=== PATIENT | female | born 1935 | race Caucasian/White ===

== ENCOUNTER 2021-08-09 17:41 | Inpatient (IN) | payer MEDICARE, OTHER, SELFPAY ==
[2021-08-09] VITALS (9 sets, daily range): BP systolic 104–138; BP diastolic 54–89; PULSE 69–93; RESP 15–21; TEMP 36.6–36.8; O2SAT 97–100; BMI 21.9; BMI 18.9
--- NOTE | 2021-08-09 17:58 | EKG12_ITS ---
Test Reason : SOB Blood Pressure : / mmHG Vent. Rate : 091 BPM Atrial Rate : 091 BPM P-R Int : 186 ms QRS Dur : 094 ms QT Int : 394 ms P-R-T Axes : 028 -30 -49 degrees QTc Int : 484 ms Normal sinus rhythm Left axis deviation ST & T wave abnormality, consider anterolateral ischemia Prolonged QT Abnormal ECG Confirmed by BRADLEY DELGADO, MOHAMUD ([id number]), state editor SUAD CHAVARRIA ([id number]) on 08/11/2021 9:58:13 AM Referred By: KENDRICK Confirmed By:MOHAMUD HUERTA MD
--- NOTE | 2021-08-09 17:59 | ED.VIS.DYS ---
HPI History of Present Illness Chief Complaint: Shortness of Breath Narrative Narrative: History and physical is mildly limited secondary to age. According to her daughter, patient went to her son's house. They were unable to read a pulse ox because her hands were cold. Patient has been increasingly short of breath over the last few days, and they think that maybe she accidentally turned off her oxygen prior to arrival which is why she felt very short of breath and has had dyspnea on exertion. They state that she has past medical history of fluid on her lungs but no history of heart failure. They deny that she has pleural effusions. Patient denies any increase in pedal edema or weight gain. She states that she has been short of breath and having dyspnea on exertion for quite some time, but worse over the last few days. She wears 3 L of oxygen per nasal cannula at all times. She denies any fevers or chills. No cough, no other symptoms. They present her for evaluation for her shortness of breath that has been increasing. [facility] Medical History Depression Home Medications Multivitamins,Therapeutic 1 tab DAILY 09/29/14 [History Last Taken 11/09/14 08:00 1] diclofenac sodium 50 mg PO DAILY 09/29/14 [History Last Taken 11/09/14 08:00 50 mg] oxycodone [OxyContin] 10 mg PO Q6H PRN PRN #30 tablet 10/01/14 [Rx Last Taken 11/09/14 14:00 10 mg] ergocalciferol (vitamin D2) [Vitamin D2] 50,000 unit PO QMONTH 11/09/14 [History Last Taken Unknown] citalopram 40 mg PO DAILY 08/09/21 [History Last Taken Unknown] dorzolamide drp OPHTHALMIC (EYE) BID 08/09/21 [History Last Taken Unknown] gabapentin 100 mg PO BID 08/09/21 [History Last Taken Unknown] latanoprost drp OPHTHALMIC (EYE) DAILY 08/09/21 [History Last Taken Unknown] oxybutynin chloride 5 mg PO DAILY 08/09/21 [History Last Taken Unknown] oxycodone 5 mg PO DAILY 08/09/21 [History Last Taken Unknown] pantoprazole 40 mg PO DAILY 08/09/21 [History Last Taken Unknown] timolol maleate drp OPHTHALMIC (EYE) BID 08/09/21 [History Last Taken Unknown] Allergy/AdvReac Type Severity Reaction Status Date / Time No Known Allergies Allergy Verified 08/09/21 17:42 Family History Other Heart disease Surgical History History of appendectomy History of bilateral knee replacement History of hysterectomy Social History Smoking Status: Never smoker ROS ROS ED ROS Narrative Constitutional: No fever, no chills. No weight gain. HEENT: No sore throat. No neck pain. No loss of vision. No rhinorrhea. Cardiovascular: No chest pain. No palpitations. Positive pedal edema. Respiratory: No cough, positive dyspnea on exertion and shortness of breath. Abdominal: No abdominal pain. No nausea. No vomiting. Genitourinary: No dysuria. No hematuria. Musculoskeletal: No myalgias. No arthralgias. Neurologic: No headaches. No dizziness. No lightheadedness. Skin: No rash. No change in color. Psychiatric: No depression. No anxiety. EXAM Physical Exam Narrative Exam Narrative: Afebrile. Vital signs noted. HEENT: Normocephalic. Atraumatic. PERRL, EOMI. Neck soft and supple. No point tenderness or step off. Cardiovascular: Regular rate and rhythm. No murmurs, rubs, or gallops appreciated. Respiratory: No tachypnea. Rales bilateral bases left greater than right. Gastrointestinal: Abdomen soft, nontender, with normoactive bowel sounds. No rebound or guarding. Neurological: Awake. Alert. Nonfocal, nonlateralizing. Skin: No rash. Normal color. No pallor. Musculoskeletal: Bilateral symmetric pedal edema. Full range of motion extremities. Const Vital Signs: 08/09/21 17:42 08/09/21 17:51 08/09/21 19:24 Temperature 98.3 F Temperature Source Temporal Pulse Rate 93 84 77 Respiratory Rate 21 H 15 20 H Respiratory Effort Normal Respiratory Depth Normal Respiratory Pattern Normal Blood Pressure 109/54 L 108/89 H 104/61 Blood Pressure Mean 72 95 75 Pulse Ox 97 98 100 Oxygen Delivery Method Nasal Cannula Nasal Cannula Oxygen Flow Rate (L/min) 3 3 MDM MDM MDM Narrative Medical decision making narrative: Patient and her daughter state that she does not take Lasix. Comprehensive work-up was pursued including chest x-ray, EKG, and laboratories including CBC, basic metabolic panel, troponin, and brain natruretic peptide. Her pulse ox is currently 98% on her 3 L of nasal cannula oxygen. Her initial EKG demonstrates normal sinus rhythm with T wave inversion in V3 to V4, no acute ST changes. CBC shows normal white count 10.3, with hemoglobin stable at 9.5. Platelet count normal at 341. Potassium slightly elevated at 5.7, creatinine 1.27. Her troponin is elevated at 471 with a BNP of 367. Her chest x-ray shows bilateral infiltrates that are fluffy in nature consistent with congestive heart failure. Left greater than right. RN noticed what she thought were changes on the monitor. Second EKG demonstrates T wave inversions still, but no acute ST changes. Patient is pain-free. She will be given aspirin. I did discuss the patient with the director of clinical education on-call, Dr. Johnson who agrees with starting the patient on heparin with Lasix given, and admission to the hospitalist. I discussed the patient with Dr. Bhandari for admission to the PCU. She is in stable condition. Lab Data Attestation: I reviewed the patient's lab results. Labs: Laboratory Results - last 24 hr 08/09/21 08/09/21 08/09/21 18:24 18:24 18:24 WBC 10.3 RBC 3.32 L Hgb 9.5 L Hct 32.4 L MCV 97.6 MCH 28.6 MCHC 29.3 L RDW Std Deviation 48.2 H RDW Coeff of Ivon 13.6 Plt Count 341 MPV 9.8 Immature Gran % (Auto) 0.400 Neut % (Auto) 95.4 H Lymph % (Auto) 2.3 L [place] % (Auto) 1.4 Eos % (Auto) 0.3 Baso % (Auto) 0.2 Absolute Neuts (auto) 9.9 H Absolute Lymphs (auto) 0.24 L Nucleated RBC % 0 Differential Comment SCANNED PT INR APTT Sodium 137 Potassium 5.7 H Chloride 105 Carbon Dioxide 25.0 Anion Gap 7 BUN 34 H Creatinine 1.27 H Estim Creat Clear Calc 26.79 Est GFR (MDRD) Af Amer 51 L Est GFR (MDRD) Non-Af 42 L BUN/Creatinine Ratio 26.8 H Glucose 180 H Calcium 8.7 Troponin I High Sens 471 H* B-Natriuretic Peptide 367.4 H 08/09/21 19:50 WBC RBC Hgb Hct MCV MCH MCHC RDW Std Deviation RDW Coeff of Ivon Plt Count MPV Immature Gran % (Auto) Neut % (Auto) Lymph % (Auto) [place] % (Auto) Eos % (Auto) Baso % (Auto) Absolute Neuts (auto) Absolute Lymphs (auto) Nucleated RBC % Differential Comment PT 12.5 INR 1.0 APTT 20.8 L Sodium Potassium Chloride Carbon Dioxide Anion Gap BUN Creatinine Estim Creat Clear Calc Est GFR (MDRD) Af Amer Est GFR (MDRD) Non-Af BUN/Creatinine Ratio Glucose Calcium Troponin I High Sens B-Natriuretic Peptide Radiography Diagnostic Testing: Clinical Impression(s) from Imaging Studies Chest X-Ray 08/09/21 18:07 IMPRESSION: Bilateral interstitial densities and patchy infiltrates, left more than right. Electronically Signed: Indra Goldberg DO at 19:05 EST Tel [phone], Service support , Critical Care Time Critical care time (excluding procedures): 30-74 minutes (31 minutes), Including time spent:, Discussing w/Patient &/or Family/Reset Merchandiser, Discussing w/Consultants and Arranging Admission or Transfer Discharge Plan Dx/Rx/DC Orders Clinical Impression: NSTEMI, initial episode of care, CHF (congestive heart failure) Disposition Disposition: Acute Care [facility]
--- NOTE | 2021-08-09 18:07 | RAD_ITS ---
STUDY: X-RAY CHEST REASON FOR EXAM: Female, 85 years old. Shortness of breath TECHNIQUE: Frontal view COMPARISON: 11/09/2014 FINDINGS: The lungs are expanded. Bilateral interstitial densities and patchy infiltrates, left more than right. Normal size heart. Normal mediastinum and prema. Normal visualized pulmonary arteries. Normal visualized aortic arch and descending thoracic aorta. Degenerative changes of the thoracic spine. Old compression of T12 vertebroplasty. Normal visualized ribs, clavicles, and shoulders. There is no demonstrated abnormality of the visualized soft tissue structures of the upper abdomen. RAD/Chest 1 View (Portable) IMPRESSION: Bilateral interstitial densities and patchy infiltrates, left more than right. Electronically Signed: Indra Goldberg DO at 19:05 EST Tel [phone], Service support ,
[2021-08-09 18:30] LABS: Absolute Lymphocyte Count 0.24 X10^3/uL (0.83-4.51); Absolute Neutrophil Count 9.9 X10^3/uL (2.0-7.7); Basophil# 0.02 X10^3/uL; Basophil% 0.2 % (0-1); Eosinophil# 0.03 X10^3/uL; Eosinophils% 0.3 % (0-5); Hematocrit 32.4 % (37-47); Hemoglobin 9.5 g/dL (12.0-15.0); Lymphocyte # 0.24 X10^3/ul (0.83-4.51); Lymphocyte % 2.3 % (19-41); Mean Corp Hgb Conc 29.3 g/dL (32-36); Mean Corpuscular Hgb 28.6 pg (27.0-32.0); Mean Corpuscular Volume 97.6 fL (81-99); Mean Platelet Vol. 9.8 fl (6.2-12.0); Monocyte# 0.14 X10^3/uL; Monocyte% 1.4 % (0-10); NRBC Flagged by Analyzer 0 % (0-5); Neutrophil # 9.85 X10^3/uL (2.7-7.7); Neutrophil % 95.4 % (47-70); POSITIVE DIFFERENTIAL YES; Platelet Count 341 K/mm3 (150-450); RBC Distribution Width CV 13.6 % (11.6-14.6); RBC Distribution Width SD 48.2 fl (35.1-43.9); Red Blood Count 3.32 M/mm3 (4.2-5.4); White Blood Count 10.3 K/mm3 (4.4-11.0)
[2021-08-09 18:33] LABS: Differential Indicated SCAN CRITERIA MET
[2021-08-09 18:39] LABS: Differential Comment SCANNED
[2021-08-09 18:49] LABS: BNP,B-Type NATRIURETIC PEPTIDE 367.4 pg/mL (0-100)
[2021-08-09 18:50] LABS: Anion Gap 7 (5-15); BUN 34 mg/dL (7-18); BUN/Creat Ratio 26.8 RATIO (10-20); Calcium,Total 8.7 mg/dL (8.5-10.1); Chloride 105 mmol/L (98-107); Creatinine, Serum 1.27 mg/dL (0.55-1.02); EST Glomerular Filtration Rate 42 mL/min (>60); Est Glom Filt Rate - Afr Amer 51 mL/min (>60); Estimated Creatinine Clearance 26.79 ml/min; Glucose 180 mg/dL (74-106); Potassium 5.7 mmol/L (3.5-5.1); Sodium Level 137 mmol/L (136-145); Troponin-I HS 471 pg/mL (3.0-54.0)
--- NOTE | 2021-08-09 19:16 | EKG12_ITS ---
Test Reason : SHORTNESS OF BREATH Blood Pressure : / mmHG Vent. Rate : 074 BPM Atrial Rate : 074 BPM P-R Int : 156 ms QRS Dur : 104 ms QT Int : 452 ms P-R-T Axes : 035 -26 -56 degrees QTc Int : 501 ms Normal sinus rhythm Leftward axis Left ventricular hypertrophy T wave abnormality: Consider myocardial ischemia Prolonged QT Abnormal ECG Confirmed by TIM DELGADO, RUFINO ([id number]), editorial project manager SUAD CHAVARRIA ([id number]) on 08/27/2021 8:56:51 AM Referred By: KENDRICK Confirmed By:RUFINO DUMONT MD
--- NOTE | 2021-08-09 19:18 | EKG12_ITS ---
Test Reason : SHORTNESS OF BREATH Blood Pressure : / mmHG Vent. Rate : 074 BPM Atrial Rate : 074 BPM P-R Int : 164 ms QRS Dur : 086 ms QT Int : 434 ms P-R-T Axes : 046 -27 -46 degrees QTc Int : 481 ms Normal sinus rhythm Left ventricular hypertrophy with repolarization abnormality Abnormal ECG Confirmed by BRADLEY DELGADO, MOHAMUD ([id number]), department editor SUAD CHAVARRIA ([id number]) on 08/26/2021 10:34:21 AM Referred By: KENDRICK Confirmed By:MOHAMUD HUERTA MD
[2021-08-09] MEDS: Furosemide 40 MG/4 ML Vial IV (19:33)
[2021-08-09] MEDS: Aspirin 325 MG Tablet PO (19:33)
[2021-08-09] MEDS: Heparin Injection (Vial) 5,000 UNIT/ML VIAL 4000 UNIT IV (19:44)
[2021-08-09 20:06] LABS: Prothrombin Time (Protime)PT. 12.5 SECONDS (11.7-14.9)
[2021-08-09 20:07] LABS: Partial Thromboplast Time 20.8 Seconds (24.1-36.2)
--- NOTE | 2021-08-09 20:19 | PCM.HP.STD ---
HPI - General General Date of Admission: 08/09/21 HPI Narrative GUILLAUME AKINS, is a 85 F with a significant history of idiopathic pulmonary fibrosis on 3 L who presents to the emergency department with dyspnea on exertion. Reportedly patient has been having shortness of breath for about 2 weeks. Reportedly she was diagnosed with fluid on her lungs and also dysphagia and coughing and has been on prednisone for about 8 to 9 days. Patient who was visiting her son was found to be hypoxic at her son's house. It is presumed that her oxygen might have been off as patient was also confused. Further she was too weak even to get up with help. At the emergent department patient was found to have elevated troponin and T wave inversions. [facility] Medical History Depression Home Medications Multivitamins,Therapeutic 1 tab DAILY 09/29/14 [History Last Taken 11/09/14 08:00 1] diclofenac sodium 50 mg PO DAILY 09/29/14 [History Last Taken 11/09/14 08:00 50 mg] oxycodone [OxyContin] 10 mg PO Q6H PRN PRN #30 tablet 10/01/14 [Rx Last Taken 11/09/14 14:00 10 mg] ergocalciferol (vitamin D2) [Vitamin D2] 50,000 unit PO QMONTH 11/09/14 [History Last Taken Unknown] citalopram 40 mg PO DAILY 08/09/21 [History Last Taken Unknown] dorzolamide drp OPHTHALMIC (EYE) BID 08/09/21 [History Last Taken Unknown] gabapentin 100 mg PO BID 08/09/21 [History Last Taken Unknown] latanoprost drp OPHTHALMIC (EYE) DAILY 08/09/21 [History Last Taken Unknown] oxybutynin chloride 5 mg PO DAILY 08/09/21 [History Last Taken Unknown] oxycodone 5 mg PO DAILY 08/09/21 [History Last Taken Unknown] pantoprazole 40 mg PO DAILY 08/09/21 [History Last Taken Unknown] timolol maleate drp OPHTHALMIC (EYE) BID 08/09/21 [History Last Taken Unknown] Allergy/AdvReac Type Severity Reaction Status Date / Time No Known Allergies Allergy Verified 08/09/21 17:42 Family History Other Heart disease Surgical History History of appendectomy History of bilateral knee replacement History of hysterectomy Social History household members: family housing: house number of children: 3 Smoking Status: Never smoker ROS ROS Narrative Constitutional: Reports fatigue. Denies fever, chills, anorexia and change in weight Eyes: Denies blurry vision, change in eye color, change in vision, discharge from eye(s), double vision, erythema, eye pain, loss of vision or other HEENT: Denies abnormal hearing, dysphagia, ear pain, epistaxis, headache(s), hearing loss, nasal congestion, nasal discharge, post nasal drip, sinus pressure, sore throat or other Cardiovascular: Report dyspnea on exertion. Denies chest pain or palpitations. Respiratory/Chest: Reports cough. Reports shortness of breath. Gastrointestinal: Denies abdominal pain, coffee ground emesis, constipation, diarrhea, dyspepsia, hematemesis, hematochezia, loose stools, melena, nausea, vomiting or other Genitourinary: Denies burning urination, difficulty urinating, dysuria, hematuria, nocturia, urinary frequency, urinary hesitancy, urinary incontinence, urinary urgency or other Musculoskeletal: Denies arthralgias, back pain, joint pain, joint stiffness, joint swelling, myalgias, neck pain or other Neurologic: Denies abnormal gait, abnormal speech, confusion, disequilibrium, dizziness, focal weakness, headache(s), numbness, paresthesias, seizure-like activity, seizures, syncope, tingling, tremor(s) or other Psychiatric: Denies anxiety, depression, homicidal ideation, suicidal ideation or other Endocrinology: Denies change in body appearance, cold intolerance, excessive sweating, heat intolerance, polydipsia, polyuria or other Hematologic/Lymphatic: Denies anemia, easy bleeding, easy bruising, lymphadenopathy or other Integumentary: Denies rashes Allergic/Immunologic: Denies rhinitis, hives, eczema, asthma or other Vital Signs Vital Signs Vital Signs: 08/09/21 17:42 08/09/21 17:51 08/09/21 19:24 Temperature 98.3 F Temperature Source Temporal Pulse Rate 93 84 77 Respiratory Rate 21 H 15 20 H Respiratory Effort Normal Respiratory Depth Normal Respiratory Pattern Normal Blood Pressure 109/54 L 108/89 H 104/61 Blood Pressure Mean 72 95 75 Pulse Ox 97 98 100 Oxygen Delivery Method Nasal Cannula Nasal Cannula Oxygen Flow Rate (L/min) 3 3 Weight Weight: 56 kg Body Mass Index (BMI) 21.9 Physical Exam Narrative Physical exam: General: Well-nourished, well-developed. Head: Normocephalic, atraumatic, no tenderness Eyes: PERRLA, EOMI ENT, no trauma, moist mucous membranes, no rhinorrhea Neck: Nontender, full range of motion, no spinal tenderness, deformities, step-off CVS: Regular rate and rhythm. S1-S2 present. No murmur, gallop or rub. Respiratory : Rales, chest wall nontender, no wheezing Abdomen: Soft, mildly tender, nondistended, normal bowel sounds, no masses : Deferred Back: Nontender, no CVA tenderness, no midline spinal tenderness, deformities, step-offs Extremities: Bilateral leg with mild edema. Nontender full range of motion, no trauma Skin: Normal color, no trauma, abrasions Neuro: Alert, oriented, cranial nerves II through XII grossly intact. Psychiatry: Normal mood. Normal affect. Not depressed. Not anxious. Results Lab / Micro Data Result Diagrams: 08/09/21 18:24 08/09/21 18:24 Labs: Laboratory Results - last 24 hr 08/09/21 18:24: WBC 10.3, RBC 3.32 L, Hgb 9.5 L, Hct 32.4 L, MCV 97.6, MCH 28.6, MCHC 29.3 L, RDW Std Deviation 48.2 H, RDW Coeff of Ivon 13.6, Plt Count 341, MPV 9.8, Immature Gran % (Auto) 0.400, Neut % (Auto) 95.4 H, Lymph % (Auto) 2.3 L, [place] % (Auto) 1.4, Eos % (Auto) 0.3, Baso % (Auto) 0.2, Absolute Neuts (auto) 9.9 H, Absolute Lymphs (auto) 0.24 L, Nucleated RBC % 0, Differential Comment SCANNED 08/09/21 18:24: Sodium 137, Potassium 5.7 H, Chloride 105, Carbon Dioxide 25.0, Anion Gap 7, BUN 34 H, Creatinine 1.27 H, Estim Creat Clear Calc 26.79, Est GFR (MDRD) Af Amer 51 L, Est GFR (MDRD) Non-Af 42 L, BUN/Creatinine Ratio 26.8 H, Glucose 180 H, Calcium 8.7, Troponin I High Sens 471 H* 08/09/21 18:24: B-Natriuretic Peptide 367.4 H 08/09/21 19:50: PT 12.5, INR 1.0, APTT 20.8 L Micro: Microbiology 08/09/21 16:33 Nasal Secretion SARS-CoV-2 Antigen (Rapid) - Final Radiology Impression Chest X-Ray 08/09/21 18:07 IMPRESSION: Bilateral interstitial densities and patchy infiltrates, left more than right. Electronically Signed: Indra Goldberg, DO at 19:05 EST Tel [phone], Service support , Assessment & Plan Assessment/Plan (1) NSTEMI, initial episode of care: PLAN: NSTEMI Review of Emergency department labs showed high sensitive morning of 471. Trend troponin. Review of Emergency department EKG showed T wave inversions in leads V3 and V4. Also of note is T wave inversions in lead III and aVF but this is unchanged from previous. Emergent department doctor discussed the case with cardiology who recommended heparin drip. Heparin drip started atemergency department and continued Chest x-ray image was independently interpreted and agree radiologist interpretation of bilateral interstitial densities and patchy infiltrates, left more than right. Consider longitudinal follow up with further imaging. Received full dose aspirin at the emergency department. ASA 81 mg p.o. daily ordered We will check lipid panel. Stat EKG as needed for chest pain Per discussion between emergent department doctor and on-call distribution center administrator cardiac cath may be considered. Patient's daughter who is the POA (Cecilia Mccall - [phone]) wants to be called if cardiac cath is planned. Trend CBC and BMP. Dyspnea on exertion Likely from NSTEMI; or heart failure BNP was 367.4 Received Lasix 40 mg IV push at the emergency department. We will hold off further Lasix at this time. On her baseline 3 L on room air patient oxygen saturation is appropriate at this time. Patient is at risk of contrast-induced nephropathy if cathed. Will check echocardiogram. Consider further Lasix as necessary. CKD Stage IIIa Stable Trend BMP Chronic pain Home narcotics continued. Home NSAIDs held as patient is at risk of contrast-induced nephropathy for possible cardiac cath. Gabapentin continued. Tylenol as needed ordered. Urinary retention Oxybutynin continued. GERD PPI continued. DVT prophylaxis: Not indicated since patient will be started on heparin drip. Hepar Charges/Coding Visit Charges Inpatient E&M: 62838 Init Hosp L3
--- NOTE | 2021-08-09 21:22 | EKG12_ITS ---
Test Reason : CP ADMIT Blood Pressure : / mmHG Vent. Rate : 068 BPM Atrial Rate : 068 BPM P-R Int : 180 ms QRS Dur : 098 ms QT Int : 452 ms P-R-T Axes : 050 -31 -45 degrees QTc Int : 480 ms Normal sinus rhythm Left axis deviation Voltage criteria for left ventricular hypertrophy T wave abnormality, consider anterolateral ischemia Confirmed by BRADLEY DELGADO, MOHAMUD ([id number]), editor in chief SUAD CHAVARRIA ([id number]) on 08/11/2021 10:09:35 AM Referred By: DR CONTRERAS Confirmed By:MOHAMUD HUERTA MD
--- NOTE | 2021-08-09 21:50 | PCS.PANDOC ---
PANDEMIC DOCUMENTATION INITIATED: Date: 03/30/2021 Time: 190
--- NOTE | 2021-08-09 21:50 | NURSING ---
Pt states had covid vaccine unsure which brand or when administered.
[2021-08-09 22:38] LABS: Troponin-I HS 2314 pg/mL (3.0-54.0)
--- NOTE | 2021-08-09 22:39 | NURSING ---
Pts primary rn aware of critical troponin result of 2314 at this time.
[2021-08-09] MEDS: Gabapentin 100 MG Capsule PO (23:31)
[2021-08-10] VITALS (17 sets, daily range): BP systolic 87–109; BP diastolic 50–70; PULSE 58–83; RESP 14–18; TEMP 36.1–37; O2SAT 94–100
--- NOTE | 2021-08-10 00:22 | NURSING ---
primary RN Marily made aware of critical trop result
[2021-08-10 00:23] LABS: Troponin-I HS 3236 pg/mL (3.0-54.0)
[2021-08-10 02:13] LABS: Absolute Lymphocyte Count 0.83 X10^3/uL (0.83-4.51); Absolute Neutrophil Count 8.4 X10^3/uL (2.0-7.7); Basophil# 0.01 X10^3/uL; Basophil% 0.1 % (0-1); Eosinophil# 0.01 X10^3/uL; Eosinophils% 0.1 % (0-5); Hematocrit 31.2 % (37-47); Hemoglobin 9.5 g/dL (12.0-15.0); Lymphocyte # 0.83 X10^3/ul (0.83-4.51); Mean Corp Hgb Conc 30.4 g/dL (32-36); Mean Corpuscular Hgb 28.5 pg (27.0-32.0); Mean Corpuscular Volume 93.7 fL (81-99); Mean Platelet Vol. 9.5 fl (6.2-12.0); Monocyte# 1.09 X10^3/uL; Monocyte% 10.6 % (0-10); NRBC Flagged by Analyzer 0 % (0-5); Neutrophil # 8.36 X10^3/uL (2.7-7.7); Neutrophil % 80.9 % (47-70); Platelet Count 347 K/mm3 (150-450); RBC Distribution Width CV 13.5 % (11.6-14.6); RBC Distribution Width SD 46.1 fl (35.1-43.9); Red Blood Count 3.33 M/mm3 (4.2-5.4); White Blood Count 10.3 K/mm3 (4.4-11.0)
[2021-08-10 02:23] LABS: Partial Thromboplast Time 84.6 Seconds (24.1-36.2)
[2021-08-10 02:32] LABS: Anion Gap 4 (5-15); BUN 31 mg/dL (7-18); Calcium,Total 8.4 mg/dL (8.5-10.1); Chloride 100 mmol/L (98-107); Cholesterol 173 mg/dL (200); Creatinine, Serum 0.88 mg/dL (0.55-1.02); EST Glomerular Filtration Rate 64 mL/min (>60); Est Glom Filt Rate - Afr Amer 78 mL/min (>60); Estimated Creatinine Clearance 38.15 ml/min; Glucose 99 mg/dL (74-106); High Density Lipoprotein 85 mg/dL; Potassium 4.1 mmol/L (3.5-5.1); Sodium Level 140 mmol/L (136-145); Triglycerides 57 mg/dL; Very Low Density Lipoprotein 11 mg/dL (5-40)
--- NOTE | 2021-08-10 05:55 | EKG12_ITS ---
Test Reason : AM EKG Blood Pressure : / mmHG Vent. Rate : 060 BPM Atrial Rate : 060 BPM P-R Int : 174 ms QRS Dur : 106 ms QT Int : 492 ms P-R-T Axes : 048 -31 -38 degrees QTc Int : 492 ms Normal sinus rhythm Left axis deviation ST & T wave abnormality, consider anterolateral ischemia Prolonged QT Abnormal ECG Confirmed by BRADLEY DELGADO, MOHAMUD ([id number]), scientific publications editor SUAD CHAVARRIA ([id number]) on 08/11/2021 10:07:51 AM Referred By: DR CONTRERAS Confirmed By:MOHAMUD HUERTA MD
[2021-08-10] MEDS: 0.9% Saline Lock 10 ML Syringe IV (07:29)
[2021-08-10] MEDS: Aspirin E.C. 81 MG Tablet PO (07:50)
[2021-08-10] MEDS: 0.9% Normal Saline 1,000 ML 15 ML IV (07:51)
--- NOTE | 2021-08-10 08:13 | NURSING ---
pt taken to section laborer; Report given to Jared HAIDER, made aware consent not signed d/t pt having questions, heparin gtt off at 0728, pt had ASA. .
--- NOTE | 2021-08-10 09:16 | PCM.CONS.C ---
Assessment & Plan Assessment/Plan (1) CHF (congestive heart failure): PLAN: She appears to have shortness of breath which is likely secondary to diastolic heart failure. The basis of the above may likely be coronary artery disease. Would recommend continued diuresis with Lasix 40 mg daily Her ejection fraction appears to be preserved based on the testing this morning. (2) NSTEMI, initial episode of care: PLAN: She did have an episode of a non-ST elevation myocardial infarction which may have accounted for the worsening of the shortness of breath. Cardiac catheterization performed this morning demonstrates the following Mildly calcified left main coronary artery with ostial 20% stenosis Calcified left anterior descending artery with proximal 80% stenosis Left circumflex artery with mild diffuse disease Dominant large right coronary artery with mild to moderate proximal and mid disease and distal 50 to 60% stenosis noted in the posterior descending artery Preserved left ventricular systolic function Based on the above angiographic findings would recommend PCI of the LAD HPI Consult Data Date of Consult: 08/10/21 HPI Narrative HPI Narrative: GUILLAUME AKINS, is a 85 F who presents to the emergency room due to increasing shortness of breath over the last few days to weeks. They initially thought that she had accidentally turned her oxygen off and had gotten quite dyspneic with exertion. She denied any chest pain per se but had had what appeared to be paroxysmal nocturnal dyspnea but no pedal edema. She has had no neck arm or jaw discomfort to suggest angina. In the emergency room she was noted to be dyspneic and had small pleural effusions. Cardiac enzymes were obtained which were abnormal and cardiology was called for further evaluation and management. She denies any nausea vomiting dizziness diaphoresis or near syncope. [facility] Medical History Depression Home Medications Multivitamins,Therapeutic 1 tab DAILY 09/29/14 [History Last Taken 11/09/14 08:00 1] diclofenac sodium 50 mg PO DAILY 09/29/14 [History Last Taken 11/09/14 08:00 50 mg] oxycodone [OxyContin] 10 mg PO Q6H PRN PRN #30 tablet 10/01/14 [Rx Last Taken 11/09/14 14:00 10 mg] ergocalciferol (vitamin D2) [Vitamin D2] 50,000 unit PO QMONTH 11/09/14 [History Last Taken Unknown] citalopram 40 mg PO DAILY 08/09/21 [History Last Taken Unknown] dorzolamide drp OPHTHALMIC (EYE) BID 08/09/21 [History Last Taken Unknown] gabapentin 100 mg PO BID 08/09/21 [History Last Taken Unknown] latanoprost drp OPHTHALMIC (EYE) DAILY 08/09/21 [History Last Taken Unknown] oxybutynin chloride 5 mg PO DAILY 08/09/21 [History Last Taken Unknown] oxycodone 5 mg PO DAILY 08/09/21 [History Last Taken Unknown] pantoprazole 40 mg PO DAILY 08/09/21 [History Last Taken Unknown] timolol maleate drp OPHTHALMIC (EYE) BID 08/09/21 [History Last Taken Unknown] Allergy/AdvReac Type Severity Reaction Status Date / Time No Known Allergies Allergy Verified 08/09/21 17:42 Family History Other Heart disease Surgical History History of appendectomy History of bilateral knee replacement History of hysterectomy Social History household members: family housing: house number of children: 3 Smoking Status: Never smoker ROS Constitutional Constitutional: Denies fever(s) or weight loss Eyes Eyes: Reports systems reviewed and no addt'l complaints, except as documented ENT HEENT: Reports systems reviewed and no addt'l complaints, except as documented Cardiovascular Cardiovascular: Denies chest pain at rest, chest pain with activity, dyspnea at rest, dyspnea on exertion, edema, palpitations or paroxysmal nocturnal dyspnea Respiratory/Chest Respiratory/Chest: Reports dyspnea on exertion, shortness of breath at rest and shortness of breath with exertion; Denies productive cough Gastrointestinal Gastrointestinal: Denies change in bowel habits, nausea, vomiting or weight changes Genitourinary Genitourinary: Denies difficulty urinating Musculoskeletal Musculoskeletal: Denies joint stiffness or muscle weakness Integumentary Integumentary: Denies lesions Neurologic Neurologic: Denies dizziness or syncope Psychiatric Psychiatric: Denies anxiety Endocrine Endocrinology: Denies excessive sweating or fatigue Hematologic/Lymphatic Hematologic/Lymphatic: Denies anemia Allergic/Immunologic Allergic/Immunologic: Denies seasonal rhinorrhea Physical Exam Const alert, oriented x3 and no apparent distress General Appearance: cooperative HEENT hearing grossly normal bilaterally Head and Scalp: atraumatic Eyes EOMs intact bilaterally Neck General: normal visual inspection Chest inspection of chest normal and palpation of chest normal Resp normal respiratory effort Auscultation: clear to auscultation bilaterally Cardio regular rate, regular rhythm, S1 normal heart sound and S2 normal heart sound Jugular Venous Distention: JVD GI normal to inspection, nondistended, normoactive bowel sounds Extremity normal capillary refill and no pedal edema Peripheral Pulses: Yes pulses 2+ throughout and femoral pulses present Skin no rashes or lesions noted Neuro oriented x3 and CN's II-XII intact bilaterally Psych Appearance: grossly normal and appropriate Risk Stratification Risk Stratification Applicable: Yes Age >/= 65: Yes >/= 3 CAD Risk Factors (HTN, HLD, DM, family hx of CAD, or current smoker): No Aspirin Use in the Past 7 Days: No Severe Angina (>/= episodes in 24 hours): No EKG ST Changes >/= 0.5mm: No Positive Cardiac Marker: Yes JOSEPH Risk Stratification Score: 2 JOSEPH % Risk: 8% Risk Objective Data Vital Signs: Vital Signs Temp Pulse Resp BP Pulse Ox 97.0 F L 62 16 92/53 L 100 08/10/21 03:24 08/10/21 06:59 08/10/21 03:24 08/10/21 03:24 08/10/21 03:24 Oxygen Flow Rate (L/min) 3 Oxygen Delivery Method Nasal Cannula Weight: 113 lb 15.664 oz Body Mass Index (BMI) 18.9 Intake & Output: Intake and Output for Last 24 Hours 08/08/21 08/09/21 08/10/21 23:59 23:59 23:59 Intake Total 0.02 / 120.02 208.15 / 208.15 Output Total 600 / 600 Balance 0.02 / 120.02 -391.85 / -391.85 Lab / Micro Data Result Diagrams: 08/10/21 02:05 08/10/21 02:05 Labs: Laboratory Results - last 24 hr 08/09/21 18:24: WBC 10.3, RBC 3.32 L, Hgb 9.5 L, Hct 32.4 L, MCV 97.6, MCH 28.6, MCHC 29.3 L, RDW Std Deviation 48.2 H, RDW Coeff of Ivon 13.6, Plt Count 341, MPV 9.8, Immature Gran % (Auto) 0.400, Neut % (Auto) 95.4 H, Lymph % (Auto) 2.3 L, [place] % (Auto) 1.4, Eos % (Auto) 0.3, Baso % (Auto) 0.2, Absolute Neuts (auto) 9.9 H, Absolute Lymphs (auto) 0.24 L, Nucleated RBC % 0, Differential Comment SCANNED 08/09/21 18:24: Sodium 137, Potassium 5.7 H, Chloride 105, Carbon Dioxide 25.0, Anion Gap 7, BUN 34 H, Creatinine 1.27 H, Estim Creat Clear Calc 26.79, Est GFR (MDRD) Af Amer 51 L, Est GFR (MDRD) Non-Af 42 L, BUN/Creatinine Ratio 26.8 H, Glucose 180 H, Calcium 8.7, Troponin I High Sens 471 H* 08/09/21 18:24: B-Natriuretic Peptide 367.4 H 08/09/21 19:50: PT 12.5, INR 1.0, APTT 20.8 L 08/09/21 21:44: Troponin I High Sens 2314 H* 08/09/21 23:50: Troponin I High Sens 3236 H* 08/10/21 02:05: WBC 10.3, RBC 3.33 L, Hgb 9.5 L, Hct 31.2 L, MCV 93.7, MCH 28.5, MCHC 30.4 L, RDW Std Deviation 46.1 H, RDW Coeff of Ivon 13.5, Plt Count 347, MPV 9.5, Immature Gran % (Auto) 0.300, Neut % (Auto) 80.9 H, Lymph % (Auto) 8.0 L, [place] % (Auto) 10.6 H, Eos % (Auto) 0.1, Baso % (Auto) 0.1, Absolute Neuts (auto) 8.4 H, Absolute Lymphs (auto) 0.83, Nucleated RBC % 0 08/10/21 02:05: Sodium 140, Potassium 4.1, Chloride 100, Carbon Dioxide 36.0 H, Anion Gap 4 L, BUN 31 H, Creatinine 0.88, Estim Creat Clear Calc 38.15, Est GFR (MDRD) Af Amer 78, Est GFR (MDRD) Non-Af 64, BUN/Creatinine Ratio 35.0 H, Glucose 99, Calcium 8.4 L, Triglycerides 57, Cholesterol 173, LDL Cholesterol 77, VLDL Cholesterol 11, HDL Cholesterol 85 08/10/21 02:05: APTT 84.6 H Micro: Microbiology 08/09/21 16:33 Nasal Secretion SARS-CoV-2 Antigen (Rapid) - Final Cardiology Labs/Tests 08/09/21 18:24: WBC 10.3, RBC 3.32 L, Hgb 9.5 L, Hct 32.4 L, MCV 97.6, MCH 28.6, MCHC 29.3 L, Plt Count 341, MPV 9.8, Immature Gran % (Auto) 0.400, Neut % (Auto) 95.4 H, Lymph % (Auto) 2.3 L, [place] % (Auto) 1.4, Eos % (Auto) 0.3, Baso % (Auto) 0.2, Absolute Neuts (auto) 9.9 H, Nucleated RBC % 0 08/09/21 18:24: Sodium 137, Potassium 5.7 H, Chloride 105, Carbon Dioxide 25.0, Anion Gap 7, BUN 34 H, Creatinine 1.27 H, Est GFR (MDRD) Af Amer 51 L, Est GFR (MDRD) Non-Af 42 L, BUN/Creatinine Ratio 26.8 H, Glucose 180 H, Calcium 8.7 08/09/21 18:24: B-Natriuretic Peptide 367.4 H 08/09/21 19:50: PT 12.5, INR 1.0, APTT 20.8 L 08/10/21 02:05: WBC 10.3, RBC 3.33 L, Hgb 9.5 L, Hct 31.2 L, MCV 93.7, MCH 28.5, MCHC 30.4 L, Plt Count 347, MPV 9.5, Immature Gran % (Auto) 0.300, Neut % (Auto) 80.9 H, Lymph % (Auto) 8.0 L, [place] % (Auto) 10.6 H, Eos % (Auto) 0.1, Baso % (Auto) 0.1, Absolute Neuts (auto) 8.4 H, Nucleated RBC % 0 08/10/21 02:05: Sodium 140, Potassium 4.1, Chloride 100, Carbon Dioxide 36.0 H, Anion Gap 4 L, BUN 31 H, Creatinine 0.88, Est GFR (MDRD) Af Amer 78, Est GFR (MDRD) Non-Af 64, BUN/Creatinine Ratio 35.0 H, Glucose 99, Calcium 8.4 L, Triglycerides 57, Cholesterol 173, LDL Cholesterol 77, VLDL Cholesterol 11, HDL Cholesterol 85 08/10/21 02:05: APTT 84.6 H Rhythm: EKG: ECHO: Stress Test: Cardiac Cath: PCI: CT Surgery: Holter monitor: EPS: PPM: CXR: Chest CT Scan: Radiography Diagnostic Testing: Radiology Impression Chest X-Ray 08/09/21 18:07 IMPRESSION: Bilateral interstitial densities and patchy infiltrates, left more than right. Electronically Signed: Indra Goldberg DO at 19:05 EST Tel [phone], Service support ,
--- NOTE | 2021-08-10 09:28 | CL.D_ITS ---
Patient Name: GUILLAUME AKINS Study Date: 08/10/2021 Performing: Blanco Christine MD Ht: 64.96 inches 165 cm : 1935 Wt: 114.64 lbs 52 kg Age: 85 Gender: female BSA: 1.56 PROCEDURE(S) PERFORMED [id number])LHC/COR/LV CLINICAL PROFILE AND INDICATIONS Indications: Other, Other, Other Heart Failure: NYHA Class: 3, Newly Diagnosed: Yes, Heart Failure Type: Diastolic CONCLUSIONS Severe single-vessel disease involving the proximal LAD and diffuse disease involving the right coron gustavo artery with preserved ejection fraction RECOMMENDATIONS Referred for immediate PCI DESCRIPTION OF PROCEDURE The patient arrived to the procedure lab. The risks and benefits of the procedure as well as a full d escription of our services here and current unavailability of surgical backup were fully explained to the patient and/or their significant other prior to the catheterization. The Timeout was completed, verifying the correct patient and procedure. The patient's procedural site was prepped and draped in the usual fashion. Local anesthetic was given subcutaneously to right radial region with Lidocaine 2% . Using a modified Seldinger technique, arterial access was obtained via the right radial artery, a 6 Fr sheath was inserted. Left Coronary Artery selective angiography was performed in multiple views u sing a 5 Fr. 4.0 [place] catheter. Right Coronary Artery selective angiography was then performed in mu ltiple views using a 5 Fr. 4.0 [place] catheter. Left Coronary Artery selective angiography was perform ed in multiple views using a 5 Fr. JL4 catheter. Left Ventriculography was performed in MUÑOZ projection using a 5 Fr. Pigtail catheter. LV to AO pullback pressures were then recorded. CORONARY ANGIOGRAPHY DOMINANCE: Right Dominant LEFT HEART ASSESSMENT Left Ventricular Ejection Fraction: by LV Gram 70 % Normal LV wall motion Normal Left Ventricular systolic function LEFT MAIN: Mild calcification, Ostial 20% stenosis LEFT ANTERIOR DESCENDING ARTERY: Calcified vessel with very proximal 30 to 40% stenosis and proximal to mid 80% stenosis in small distal vessel CIRCUMFLEX ARTERY: Mild luminal irregularities less than 30% RIGHT CORONARY ARTERY: Proximal diffuse disease of 30 to 40% and distal posterior descending artery w ith focal 50% stenosis AORTIC ROOT: Dilated COMPLICATIONS PROCEDURE MEDICATIONS Versed 1 mg IV Fentanyl 50 mcg IV Oxygen: 3 L/min via nasal cannula Heparin given IA 08/10/2021 08:52:54 Heparin 1000 unit(s) IV 08/10/2021 09:18:35 Verapamil 2.5mg, Ntg 100mcgs 08/10/2021 09:18:53 SUMMARY OF HEMODYNAMIC DATA Time AIR REST ECG 08:28:41 AO 126/54 (82) SA 08:43:02 AO 128/62 (88) 08:55:52 LV 129/0, 9 09:12:24 LV 130/2, 14 09:13:05 LVp 99/2, 19 09:13:12 AOp 134/72 (101) 09:13:17 Signed By Blanco Christine MD On 08/10/2021 09:27:12 Blanco Christine MD
--- NOTE | 2021-08-10 10:00 | EKG12_ITS ---
Test Reason : PCI Blood Pressure : / mmHG Vent. Rate : 061 BPM Atrial Rate : 061 BPM P-R Int : 176 ms QRS Dur : 106 ms QT Int : 506 ms P-R-T Axes : 053 -29 -41 degrees QTc Int : 509 ms Normal sinus rhythm ST & T wave abnormality, consider anterolateral ischemia Prolonged QT Abnormal ECG When compared with ECG of 10-AUG-2021 05:09, MANUAL COMPARISON REQUIRED, DATA IS UNCONFIRMED Confirmed by BRADLEY DELGADO, MOHAMUD ([id number]), sound editor SUAD CHAVARRIA ([id number]) on 08/12/2021 9:39:38 AM Referred By: BRADLEY Confirmed By:MOHAMUD HUERTA MD
[2021-08-10] MEDS: 0.9% Normal Saline 1,000 ML 60 ML IV (10:29)
--- NOTE | 2021-08-10 10:39 | CL.I_ITS ---
Patient Name: GUILLAUME AKINS Study Date: 08/10/2021 Performing: Joshua Lin MD Ht: 65 inches 165 cm : 1935 Wt: 114.8 lbs 52 kg Age: 85 Gender: female BSA: 1.56 PROCEDURE(S) PERFORMED [id number]-([id number])PTCA, SINGLE CORONARY ARTERY CLINICAL PROFILE AND CO-MORBIDITIES Indications: Other, Other, Other Heart Failure: NYHA Class: 3, Newly Diagnosed: Yes, Heart Failure Type: Diastolic CONCLUSIONS Unsuccessful PCI of the pLAD due to heavy calcification resulting in inability to predilate the lesio n with balloon angioplasty. RECOMMENDATIONS Consider rotablation of pLAD DESCRIPTION OF PROCEDURE The patient arrived to the procedure lab. The risks and benefits of the procedure as well as a full d escription of our services here and current unavailability of surgical backup were fully explained to the patient and/or their significant other prior to the catheterization. The Timeout was completed, verifying the correct patient and procedure. The patient's procedural site was prepped and draped in the usual fashion. Local anesthetic was given subcutaneously to right radial region with Lidocaine 2% Using a modified Seldinger technique,arterial access was obtained via the right radial artery, a 6Fr sheath was inserted. Left Coronary Artery selective angiography was performed in multiple views usin g a 5 Fr. 4.0 [place] catheter. Right Coronary Artery selective angiography was then performed in multi ple views using a 5 Fr. 4.0 [place] catheter. Left Coronary Artery selective angiography was performed in multiple views using a 5 Fr. JL4 catheter. Left Ventriculography was performed in MUÑOZ projection using a 5 Fr. Pigtail catheter. LV to AO pullback pressures were then recorded.The images were reviewed and options discussed. A decision was then made to proceed with an Intervention, IVUS o r other adjunct procedure. xb3 Guide catheter was inserted and engaged into the LCA. bmw Guide wire was advanced to the LAD. Guide wire was advanced to the LAD. Emerge 3.00x8 Balloon catheter was inserted. PTCA balloon inflat ed at 10 atms for 32 secs. nc emerge 3x8 Balloon catheter was inserted. PTCA balloon inflated at 16 a tms for 20 secs. PTCA balloon inflated at 18 atms for 16 secs. PTCA balloon inflated at 20 atms for 2 5 secs. PTCA balloon inflated at 18 atms for 5 secs. PTCA balloon inflated at 20 atms for 15 secs. PT CA balloon inflated at 20 atms for 10 secs. wolverine 3x10 Cutting balloon catheter was inserted wolv erine 3x10 Cutting balloon catheter was inserted Cutting balloon catheter was advanced to the lesion in the LAD, proximal. Cutting balloon catheter was advanced to the lesion in the LAD, proximal. Angio gram performed post balloon dilatation. Cutting balloon catheter failed to cross lesion and was remov ed Angiogram performed post balloon dilatation. The arterial sheath was pulled and a TR Band was applied for hemostasis 12cc air INTERVENTION INFORMATION LESION SITE: LAD (Proximal) Lesion Complexity: High/C, chronic total occlusion: No, lesion at bifurcation: No, thrombus present: No, lesion length: 8 mm, culprit lesion: Yes, Previously treated lesion: No Pre Stenosis: 95 % Pre intervention JOSEPH flow: 3 PROCEDURE: Balloon Angioplasty Despite multiple inflations with a 3.0 x 8mm nc balloon inflated to 20 zonia, there was a waist in the balloon and not adequate expansion if the lesion. Cutting balloon did not cross the lesion. Pt. would need rotablation if this lesion needs to be addressed percutaneously. Post Stenosis: 80 % Post intervention JOSEPH flow: 3 Lesion Devices: [place] .014 BMW [place] Straight 190cm Mk Sci EMERGE MR 3.00x08 BALLOON Mk Sci NC EMERGE MR 3.00x08 BALLOON Mk Sci [place] cutting balloon 3.0x10 COMPLICATIONS No Complications PROCEDURE MEDICATIONS Versed 1 mg IV Fentanyl 50 mcg IV Versed 1 mg IV Oxygen: 3 L/min via nasal cannula Brilinta 180 mg PO @ 08/10/2021 09:45:35 Heparin given IA 08/10/2021 08:52:54 Heparin 1000 unit(s) IV 08/10/2021 09:18:35 Verapamil 2.5mg, Ntg 100mcgs 08/10/2021 09:18:53 SUMMARY OF HEMODYNAMIC DATA Time AIR REST ECG 08:28:41 AO 126/54 (82) SA 08:43:02 AO 128/62 (88) 08:55:52 LV 129/0, 9 09:12:24 LV 130/2, 14 09:13:05 LVp 99/2, 19 09:13:12 AOp 134/72 (101) 09:13:17 RM AIR REST 09:51:59 Signed By Joshua Lin MD On 08/10/2021 10:38:40 Joshua Lin MD
--- NOTE | 2021-08-10 10:41 | CRPHASE1_ITS ---
Patient Communication PHII Cardiac Rehab Discussed with Patient:: Yes Guide to Cardiac Rehab Given to Patient:: Yes - pt chooses [facility] Cardiac Rehab Facility Choice List Given to Patient:: Yes Choice Program [facility] CR PHII:: Communication Given to CR, Refer to [facility] Command And Control Officer:: Nguyen Lin Refer Phase II Cardiac Rehab:: Yes Sessions:: 36 sessions - 3 days/wk, 12 weeks Cardiac Rehabilitation Info Cardiac Rehabilitation Program Information: Cardiac Rehabilitation is important for patients like you who are recovering from a heart problem. Cardiac rehabilitation programs are recognized as integral to the continued care of the patient with coronary heart disease. The cardiac rehabilitation program is designed to optimize a patient's physical, psychological, and social functioning. Health pharmacy customer care specialist work in cardiac rehabilitation programs and assist you with getting the treatments you need to get stronger and healthier - like exercise, healthy eating habits, and medications. Cardiac rehabilitation has been show to help people with heart problems live longer and have better life enjoyment than people who do not go to cardiac rehabilitation. Please contact the Cardiac Rehabilitation Program at [facility] at in two weeks if you have not heard from them.
--- NOTE | 2021-08-10 10:42 | CRPH1.INSTRU ---
General Education CAD and cardiac anatomy and function:: Needs reinforcement Explanation of diagnoses and procedures:: Needs reinforcement Sign/Symptoms of NC:: Needs reinforcement Antiplatelet therapy: Needs reinforcement Proper use of NTG-SL: Not instructed Emergency procedures and activation of EMS: Needs reinforcement Compliance of all prescribed medications: Needs reinforcement Smoking Nicotine/Smoking Response Code:: Needs reinforcement Dyslipidemia Dyslipidemia Response Code:: Needs reinforcement Overweight/Obesity Patient Overweight/Obesity Risk Factors Are:: BMI Normal [18-25 & < 65 years old] Heart Disease Heart Disease Response Code:: Needs reinforcement Diabetes Diabetes:: Needs reinforcement Metabolic Syndrome Metabolic Syndrome Response Code:: Needs reinforcement Sedentary Sedentary Response Code:: Needs reinforcement Stress Stress Response Code:: Needs reinforcement
--- NOTE | 2021-08-10 12:41 | NURSING ---
Report given to Maicol HAIDER at [facility]. Requesting labs be faxed to and requesting call when pt departs to number .
--- NOTE | 2021-08-10 14:20 | CHAPLAIN ---
Type of Pastoral Visit _x__ Initial Visit ___ Follow-up Visit ___ On-call Visit ___ General Patient Visit ___ Spiritual Assessment ___ Family Conference ___ Bereavement ___ Rapid Response ___ Code Blue ___ Other (describe below) Pastoral Care Referral From _x__ Patient ___ Family ___ Nurse ___ Physician ___ Industrial Technician ___ Benzene Washer Operator ___ Other (describe below) Sacrament/Intervention _x__ Active listening ___ Anointing ___ Alevism ___ Bereavement ___ Communion _x__ Jeanna exploration ___ ___ Life review _x__ Prayer ___ Reconciliation ___ Sacrament of Sick _x__ Supportive presence ___ Wedding ___ Other (describe below) Pastoral Comments patient describes her situation and admits to some anxiety about health need and the transfer to happen soon to [facility] for procedure; daughter shows up and support given as well; prayer given to which pt responds with more calm
--- NOTE | 2021-08-10 15:43 | DS.PCM_ITS ---
Providers Date of Admission: 08/09/21 Primary Care Physician: Danis Aj DO Consultations 08/09/21 21:22 Consult: Cardiology Routine Consulting Provider: Tatyana Johnson Reason for Consult: NSTEMI EMERGENT Consult: No MD Notified: Yes Date Notified: 08/10/21 Time Notified: 05:33 Method of Notification: Text Reason For Visit: UNSTABLE ANGINA Diagnosis Discharge Diagnosis (1) CHF (congestive heart failure): Status: Acute Code(s): I50.9 - Heart failure, unspecified (2) NSTEMI, initial episode of care: Status: Acute Code(s): I21.4 - Non-ST elevation (NSTEMI) myocardial infarction Medications at Discharge Home Medications Multivitamins,Therapeutic 1 tab DAILY 09/29/14 diclofenac sodium 50 mg PO DAILY 09/29/14 oxycodone [OxyContin] 10 mg PO Q6H PRN PRN #30 tablet 10/01/14 ergocalciferol (vitamin D2) [Vitamin D2] 50,000 unit PO QMONTH 11/09/14 citalopram 40 mg PO DAILY 08/09/21 dorzolamide drp OPHTHALMIC (EYE) BID 08/09/21 gabapentin 100 mg PO BID 08/09/21 latanoprost drp OPHTHALMIC (EYE) DAILY 08/09/21 oxybutynin chloride 5 mg PO DAILY 08/09/21 oxycodone 5 mg PO DAILY 08/09/21 pantoprazole 40 mg PO DAILY 08/09/21 timolol maleate drp OPHTHALMIC (EYE) BID 08/09/21 Hospital Course Operations None Procedures Cardiac catheterization Summary of Care Provided Minutes Spent on Discharge: 45 Hospital Course: Patient is an 85-year-old female with an extensive past medical history as outlined including idiopathic pulmonary fibrosis on 3 L of oxygen who was admitted through the ED on 08/09/2021 with a complaint of shortness of breath have been going on for about 2 weeks. She was also found to be hypoxic. On admission she was found to have elevated troponin and EKG was also abnormal so she was admitted to be managed for non-STEMI on account of elevated troponin. Troponin subsequently trended up as well. 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 PCI was attempted but was unsuccessful. Per cardiology recommendations, patient was transferred to [facility] for further management. Patient was seen and examined prior to discharge. Her daughter was by her bedside. She was seen after the initial cardiac cath. She complained of some chills but had no other active complaints. Review of systems otherwise negative. Physical Exam Const alert, oriented x3 and no apparent distress General Appearance: cooperative, comfortable and well kempt Orientation / Consciousness: awake Exam Limitations: no limitations HEENT normocephalic, head/scalp atraumatic, hearing grossly normal bilaterally and moist oral mucous membranes Eyes PERRL, EOMs intact bilaterally and conjunctivae normal Resp Resp Narrative: diminished breath sounds bibasally, few crackles. On 3L of oxygen by nasal canula Cardio regular rate, regular rhythm, S1 normal heart sound, S2 normal heart sound and no murmurs GI normal to inspection, nondistended, normoactive bowel sounds, soft to palpation, non-tender and non-distended Extremity normal to inspection, full ROM and no clubbing, cyanosis or edema Skin no rashes or lesions noted Neuro oriented x3, CN's II-XII intact bilaterally and moves all extremities Sensorium / Orientation: awake and alert Medical Records Data Medical Nutrition Assessment Dietitian: Malnutrition Criteria Met Start: 08/10/21 14:21 Freq: Status: Active Protocol: Document 08/10/21 14:21 RMA (Rec: 08/10/21 14:21 RMA [id number]) Nutrition Malnutrition Evidence of Malnutrition Exists Yes Malnutrition (severe): Chronic Evidenced By Suboptimal Energy Intake ( Severe),Weight Loss (Severe), Physical Changes (Severe) Clinical Problem Chronic Disease or Condition Related Malnutrition Etiology Severe protein-calorie malnutrition in the context of chronic disease and advanced age related to inadequate oral intake Signs/Symptoms as evidenced by ~24% wt loss x past 12 months, BMI 19.0, PO meeting less than 50% estimated nutrition needs and muscle and fat wasting in the face, orbitals, temporal region and clavicle. Status Active Problem Recommendation Dietitian Recommendations/Changes Advance diet as tolerated to liberalized Regular/no added salt. Will add 240ml snowden ensure clear BID w/ breakfast and dinner as tolerated. Add fortified/ensure pudding once diet advanced from clear liquids. Pt dislikes regular ensure drinks. Weight / BMI Weight Weight: 113 lb 15.664 oz Body Mass Index (BMI) 18.9 ABG / Lab / Microbiology Data Result Diagrams: 08/10/21 02:05 08/10/21 02:05 Laboratory: Laboratory Results - last 24 hr 08/09/21 18:24: WBC 10.3, RBC 3.32 L, Hgb 9.5 L, Hct 32.4 L, MCV 97.6, MCH 28.6, MCHC 29.3 L, RDW Std Deviation 48.2 H, RDW Coeff of Ivon 13.6, Plt Count 341, MPV 9.8, Immature Gran % (Auto) 0.400, Neut % (Auto) 95.4 H, Lymph % (Auto) 2.3 L, [place] % (Auto) 1.4, Eos % (Auto) 0.3, Baso % (Auto) 0.2, Absolute Neuts (auto) 9.9 H, Absolute Lymphs (auto) 0.24 L, Nucleated RBC % 0, Differential Comment SCANNED 08/09/21 18:24: Sodium 137, Potassium 5.7 H, Chloride 105, Carbon Dioxide 25.0, Anion Gap 7, BUN 34 H, Creatinine 1.27 H, Estim Creat Clear Calc 26.79, Est GFR (MDRD) Af Amer 51 L, Est GFR (MDRD) Non-Af 42 L, BUN/Creatinine Ratio 26.8 H, Glucose 180 H, Calcium 8.7, Troponin I High Sens 471 H* 08/09/21 18:24: B-Natriuretic Peptide 367.4 H 08/09/21 19:50: PT 12.5, INR 1.0, APTT 20.8 L 08/09/21 21:44: Troponin I High Sens 2314 H* 08/09/21 23:50: Troponin I High Sens 3236 H* 08/10/21 02:05: WBC 10.3, RBC 3.33 L, Hgb 9.5 L, Hct 31.2 L, MCV 93.7, MCH 28.5, MCHC 30.4 L, RDW Std Deviation 46.1 H, RDW Coeff of Ivon 13.5, Plt Count 347, MPV 9.5, Immature Gran % (Auto) 0.300, Neut % (Auto) 80.9 H, Lymph % (Auto) 8.0 L, [place] % (Auto) 10.6 H, Eos % (Auto) 0.1, Baso % (Auto) 0.1, Absolute Neuts (auto) 8.4 H, Absolute Lymphs (auto) 0.83, Nucleated RBC % 0 08/10/21 02:05: Sodium 140, Potassium 4.1, Chloride 100, Carbon Dioxide 36.0 H, Anion Gap 4 L, BUN 31 H, Creatinine 0.88, Estim Creat Clear Calc 38.15, Est GFR (MDRD) Af Amer 78, Est GFR (MDRD) Non-Af 64, BUN/Creatinine Ratio 35.0 H, Glucose 99, Calcium 8.4 L, Triglycerides 57, Cholesterol 173, LDL Cholesterol 77, VLDL Cholesterol 11, HDL Cholesterol 85 08/10/21 02:05: APTT 84.6 H Microbiology: Microbiology 08/09/21 16:33 Nasal Secretion SARS-CoV-2 Antigen (Rapid) - Final Radiography Diagnostic Testing: Radiology Impression Chest X-Ray 08/09/21 18:07 IMPRESSION: Bilateral interstitial densities and patchy infiltrates, left more than right. Electronically Signed: Indra Goldberg DO at 19:05 EST Tel [phone], Service support , D/C Instructions Discharge Diet: Low fat / Low cholesterol Discharge Activity: Return to Normal Activity Weight Bearing Status: Weight bearing as tolerated Meaningful Use Info Meaningful Use Diagnoses (Choose all that apply): AMI AMI/Post PCI/Angioplasty Aspirin given w/in 24hrs of arrival?: Yes ASA at discharge?: Yes Antiplatelet Therapy at Discharge:: No Statins at discharge?: Yes Cole/ARB at discharge?: Yes Beta Franklin at discharge?: Yes Done w/ Acute DE measure.: Yes Discharge Plan Admission Admit Date/Time: 08/09/21 20:11 Primary Reason for Your Visit: nonstemi Attending Provider: Lou Hurtado Primary Care Provider: Danis Aj Consulting Providers: Tatyana Johnson Discharge Orders/Prescriptions Prescriptions: Continued diclofenac sodium 50 MG tablet 50 mg PO DAILY RF: 0 Multivitamins,Therapeutic 1 tab DAILY RF: 0 oxycodone [OxyContin] 10 MG tablet 10 mg PO Q6H PRN PRN (Reason: Pain) Qty: 30 RF: 0 ergocalciferol (vitamin D2) [Vitamin D2] 50,000 UNIT capsule 50,000 unit PO QMONTH RF: 0 pantoprazole 40 mg tablet,delayed release (DR/EC) 40 mg PO DAILY RF: 0 gabapentin 100 mg capsule 100 mg PO BID RF: 0 latanoprost 0.005 % drops ophthalmic (eye) DAILY RF: 0 citalopram 40 mg tablet 40 mg PO DAILY RF: 0 oxybutynin chloride 5 mg tablet extended release 24hr 5 mg PO DAILY RF: 0 timolol maleate 0.5 % drops ophthalmic (eye) BID RF: 0 dorzolamide 2 % drops ophthalmic (eye) BID RF: 0 oxycodone 5 mg tablet 5 mg PO DAILY RF: 0 Referrals / Follow Up: Danis Aj DO [Primary Care Provider] - Disposition Disposition (needs filled in before D/C Order can be placed): Acute Care Hospital Charges/Coding Visit Charges Inpatient E&M: 86355 Disch Hosp
--- NOTE | 2021-08-10 16:09 | NURSING ---
Addendum entered by Nora See 08/10/21 17:47: [facility] here and taking pt to [place]. 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 Pt will be going to room 333 tonight and they will cath pt tomorrow. Pt updated. Original Note: Pt was leaving with transport, loaded on [place]. Transport called this RN stating that their heart monitor was not working and they were not able to transport pt. Transport was going to run to [facility] to get new heart monitor and return for pt. Pt placed back into PCU bed and tele reapplied.
--- NOTE | 2021-08-10 17:18 | NURSING ---
Report called to Alfonso to [facility].
== END 2021-08-10 17:59 | disposition short-term general hospital (02) | DRG 280 ==
LOC: ED 18:18 → PCU 20:56
PROVIDERS: Admitting Provider Hospitalist; Emergency Provider Emergency Medicine; PCP Family Medicine; Visit Provider Student in an Organized Health Care Education/Training Program
DX: I21.4 Non-ST elevation (NSTEMI) myocardial infarction (principal); E43 Unspecified severe protein-calorie malnutrition; I50.33 Acute on chronic diastolic (congestive) heart failure; Z68.1 Body mass index [BMI] 19.9 or less, adult; I13.0 Hypertensive heart and chronic kidney disease with heart failure and stage 1 through stage 4 chronic kidney disease, or unspecified chronic kidney disease; R09.02 Hypoxemia; J84.112 Idiopathic pulmonary fibrosis; N18.31 Chronic kidney disease, stage 3a; I25.10 Atherosclerotic heart disease of native coronary artery without angina pectoris; G89.29 Other chronic pain; R33.9 Retention of urine, unspecified; K21.9 Gastro-esophageal reflux disease without esophagitis; F32.A Depression, unspecified; Z79.899 Other long term (current) drug therapy; Z99.81 Dependence on supplemental oxygen
CPT/HCPCS: 36415; 71045; 80048; 80061; 83880; 84484; 85025; 85610; 85730; 87426; 92920; 93005; 93458; 97802; 99152; 99153; 99285; C1725; J7030; A4216; C1769; C1887; C1894; J1327; J1940; Q9967

== ENCOUNTER 2021-08-18 18:07 | Inpatient (IN) | payer MEDICARE, OTHER, SELFPAY ==
[2021-08-18] VITALS (13 sets, daily range): BP systolic 61–133; BP diastolic 39–74; PULSE 63–85; RESP 6–24; TEMP 36.3–36.6; O2SAT 85–100; BMI 22.4
--- NOTE | 2021-08-18 18:28 | RAD_ITS ---
STUDY: X-RAY CHEST REASON FOR EXAM: Female, 85 years old. CHEST PAIN cp TECHNIQUE: XR Chest 1 View COMPARISON: 08.09.21 FINDINGS: There are bilateral pleural effusions. There are bilateral infiltrates. There is borderline cardiomegaly. Normal mediastinum and prema. Normal visualized pulmonary arteries. There is atherosclerotic calcification of the aortic arch with tortuosity. There are diffuse degenerative changes of the visualized thoracic spine. There is degenerative osteoarthritis of the bilateral shoulders. There is no demonstrated abnormality of the visualized soft tissue structures of the upper abdomen. RAD/Chest 1 View (Portable) IMPRESSION: Pulmonary findings appear worse. Electronically Signed: Sage Lipscomb MD at 19:08 EST , Service support ,
--- NOTE | 2021-08-18 18:28 | EKG12_ITS ---
Test Reason : ALTERED LOC Blood Pressure : / mmHG Vent. Rate : 062 BPM Atrial Rate : 062 BPM P-R Int : 158 ms QRS Dur : 090 ms QT Int : 430 ms P-R-T Axes : 045 -21 -22 degrees QTc Int : 436 ms Sinus rhythm with Premature atrial complexes Left ventricular hypertrophy Nonspecific ST and T wave abnormality Abnormal ECG Confirmed by BRADLEY DELGADO, MOHAMUD ([id number]), editorial clerk EITAN OLSON ([id number]) on 08/21/2021 9:57:03 AM Referred By: ARI Confirmed By:MOHAMUD HUERTA MD
--- NOTE | 2021-08-18 18:28 | CT_ITS ---
STUDY: CT BRAIN WITHOUT CONTRAST REASON FOR EXAM: Female, 85 years old. DECREASED LOC AND NOT RESPONDING SINCE 10 AM HX:CHF,COPD,DEPRESSION,SKIN CANCER altered LOC TECHNIQUE: Transaxial CT imaging of the brain was performed without administration of intravenous contrast material. Individualized dose optimization techniques were used for this CT. COMPARISON: 11.09.14 FINDINGS: Normal calvarium. Normal soft tissues. There is mild cerebral atrophy with widening of the extra-axial spaces and ventricular dilatation. There are areas of decreased attenuation within the white matter tracts of the supratentorial brain, consistent with microvascular disease changes. Normal basal ganglia and thalami. Normal brainstem. Normal cerebellum. There is no intracranial hemorrhage. There are no findings of an acute ischemic infarction. Normal visualized paranasal sinuses. ASPECTS 10 CT/Brain/Head without Contrast IMPRESSION: There are no acute intracranial findings. Electronically Signed: Sage Lipscomb MD at 19:08 EST , Service support ,
[2021-08-18] MEDS: 0.9% Normal Saline 1,000 ML 1000 ML IV (18:32)
[2021-08-18] MEDS: Naloxone 0.4 MG/ML Syringe IV (18:33)
--- NOTE | 2021-08-18 18:35 | ED.RN ---
pt given narcon, pt awake and moaning, hand grasps are now strong.
[2021-08-18 18:37] LABS: Absolute Lymphocyte Count 0.65 X10^3/uL (0.83-4.51); Basophil# 0.06 X10^3/uL; Basophil% 0.3 % (0-1); Eosinophil# 0.04 X10^3/uL; Eosinophils% 0.2 % (0-5); Hematocrit 28.4 % (37-47); Hemoglobin 8.6 g/dL (12.0-15.0); Lymphocyte # 0.65 X10^3/ul (0.83-4.51); Lymphocyte % 3.5 % (19-41); Mean Corp Hgb Conc 30.3 g/dL (32-36); Mean Corpuscular Hgb 28.5 pg (27.0-32.0); Mean Platelet Vol. 10.2 fl (6.2-12.0); Monocyte# 1.47 X10^3/uL; NRBC Flagged by Analyzer 0 % (0-5); Neutrophil # 16.03 X10^3/uL (2.7-7.7); Neutrophil % 87.1 % (47-70); POSITIVE MORPHOLOGY YES; Platelet Count 368 K/mm3 (150-450); RBC Distribution Width CV 14.4 % (11.6-14.6); RBC Distribution Width SD 49.1 fl (35.1-43.9); Red Blood Count 3.02 M/mm3 (4.2-5.4); White Blood Count 18.4 K/mm3 (4.4-11.0)
[2021-08-18 18:40] LABS: Differential Indicated SCAN CRITERIA MET
--- NOTE | 2021-08-18 18:50 | EX.ED.DYSGE1 ---
HPI History of Present Illness Chief Complaint: Alt LOC Informant: family Onset/Context/Timing Onset: Today Context: Gradual Onset Narrative Narrative: Patient presents via EMS with daughter secondary to altered level of consciousness. Patient recently had CHF and NSTEMI requiring hospital admission. She had total of 3 stents, [address] [facility] per daughter's report. On my review of discharge summary it appears the PCI attempt here was unsuccessful. Daughter states that since 10 AM this morning patient has had decreasing level of consciousness. She was not able to drink or speak this afternoon. She was lying in bed staring. [facility] Medical History Atherosclerotic heart disease of [place] coronary artery without angina pectoris Depression History of left heart catheterization (LHC) (08/10/21) Home Medications Multivitamins,Therapeutic 1 tab DAILY 09/29/14 [History Last Taken 11/09/14 08:00 1] diclofenac sodium 50 mg PO DAILY 09/29/14 [History Last Taken 11/09/14 08:00 50 mg] oxycodone [OxyContin] 10 mg PO Q6H PRN PRN #30 tablet 10/01/14 [Rx Last Taken 11/09/14 14:00 10 mg] ergocalciferol (vitamin D2) [Vitamin D2] 50,000 unit PO QMONTH 11/09/14 [History Last Taken Unknown] citalopram 40 mg PO DAILY 08/09/21 [History Last Taken Unknown] dorzolamide drp OPHTHALMIC (EYE) BID 08/09/21 [History Last Taken Unknown] gabapentin 100 mg PO BID 08/09/21 [History Last Taken Unknown] latanoprost drp OPHTHALMIC (EYE) DAILY 08/09/21 [History Last Taken Unknown] oxybutynin chloride 5 mg PO DAILY 08/09/21 [History Last Taken Unknown] oxycodone 5 mg PO DAILY 08/09/21 [History Last Taken Unknown] pantoprazole 40 mg PO DAILY 08/09/21 [History Last Taken Unknown] timolol maleate drp OPHTHALMIC (EYE) BID 08/09/21 [History Last Taken Unknown] Allergy/AdvReac Type Severity Reaction Status Date / Time No Known Allergies Allergy Verified 08/09/21 17:42 Family History Other Heart disease Surgical History History of appendectomy History of bilateral knee replacement History of hysterectomy Social History household members: family housing: house number of children: 3 Smoking Status: Never smoker ROS ROS ED Review of Systems ROS Unobtainable: due to mental condition EXAM Physical Exam Const Vital Signs: 08/18/21 18:08 08/18/21 18:19 08/18/21 18:36 Temperature 97.5 F L Temperature Source Temporal Pulse Rate 85 65 76 Respiratory Rate 6 L 6 L 24 H Blood Pressure 70/52 L 74/48 L 126/65 H Blood Pressure Mean 58 56 85 Pulse Ox 85 100 100 Oxygen Delivery Method Room Air Nasal Cannula Nasal Cannula Oxygen Flow Rate (L/min) 3 3 08/18/21 18:41 08/18/21 19:03 08/18/21 20:42 Temperature Temperature Source Pulse Rate 73 72 65 Respiratory Rate 21 H 11 L Blood Pressure 133/64 H 112/74 79/46 L Blood Pressure Mean 87 86 57 Pulse Ox 100 99 100 Oxygen Delivery Method Nasal Cannula Nasal Cannula Nasal Cannula Oxygen Flow Rate (L/min) 3 3 08/18/21 20:55 08/18/21 21:13 Temperature Temperature Source Pulse Rate 64 68 Respiratory Rate 14 16 Blood Pressure 86/49 L 86/49 L Blood Pressure Mean 61 61 Pulse Ox 100 100 Oxygen Delivery Method Oxygen Flow Rate (L/min) Positive cachectic General Appearance ED: cachectic Nutritional Appearance: cachectic HEENT Negative for trauma Eyes Eyes Narrative: Small pupils Neck supple Chest Wall inspection of chest normal and palpation of chest normal Resp Resp Narrative: Respiratory rate only 6. Lung sounds are clear. Cardio regular rate and regular rhythm GI non-tender Palpation: soft Extremity General Extremety ED: Yes edema General Extremity: edema Neuro Neuro Narrative: Lying in bed staring at the ceiling. Unresponsive to voice. Did lift her head to sternal rub. Skin no rashes or lesions noted MDM MDM MDM Narrative Medical decision making narrative: EKG, chest x-ray, head CT obtained along with blood work and urinalysis. Patient was given a small dose of Narcan as she was noted to be on morphine and oxycodone with a low respiratory rate. Following Narcan administration patient's respiratory rate improved into the 20s. Blood pressure also improved and patient was more alert. Lab Data Attestation: I reviewed the patient's lab results. Labs: Laboratory Results - last 24 hr 08/18/21 08/18/21 08/18/21 18:20 18:20 18:20 WBC 18.4 H RBC 3.02 L Hgb 8.6 L Hct 28.4 L MCV 94.0 MCH 28.5 MCHC 30.3 L RDW Std Deviation 49.1 H RDW Coeff of Ivon 14.4 Plt Count 368 MPV 10.2 Immature Gran % (Auto) 0.900 Neut % (Auto) 87.1 H Lymph % (Auto) 3.5 L [place] % (Auto) 8.0 Eos % (Auto) 0.2 Baso % (Auto) 0.3 Absolute Neuts (auto) 16.0 H Absolute Lymphs (auto) 0.65 L Nucleated RBC % 0 Differential Comment SCANNED Sodium 140 Potassium 4.9 Chloride 106 Carbon Dioxide 26.0 Anion Gap 8 BUN 58 H Creatinine 2.11 H Estim Creat Clear Calc 16.83 Est GFR (MDRD) Af Amer 29 L Est GFR (MDRD) Non-Af 24 L BUN/Creatinine Ratio 27.5 H Glucose 103 Lactic Acid 1.2 Calcium 8.9 Total Bilirubin 0.70 Direct Bilirubin 0.44 H AST 24 ALT 15 Alkaline Phosphatase 71 Troponin I High Sens 185 H* Total Protein 5.9 L Albumin 2.0 L Globulin 3.9 Lipase 18 L Urine Color Urine Clarity Urine pH Ur Specific [place] Urine Protein Urine Glucose (UA) Urine Ketones Urine Occult Blood Urine Nitrite Urine Bilirubin Urine Urobilinogen Ur Leukocyte Esterase Urine RBC Urine WBC Ur Squamous Epith Cells Urine Bacteria Hyaline Casts Urine Mucus 08/18/21 08/18/21 19:29 20:35 WBC RBC Hgb Hct MCV MCH MCHC RDW Std Deviation RDW Coeff of Ivon Plt Count MPV Immature Gran % (Auto) Neut % (Auto) Lymph % (Auto) [place] % (Auto) Eos % (Auto) Baso % (Auto) Absolute Neuts (auto) Absolute Lymphs (auto) Nucleated RBC % Differential Comment Sodium Potassium Chloride Carbon Dioxide Anion Gap BUN Creatinine Estim Creat Clear Calc Est GFR (MDRD) Af Amer Est GFR (MDRD) Non-Af BUN/Creatinine Ratio Glucose Lactic Acid Calcium Total Bilirubin Direct Bilirubin AST ALT Alkaline Phosphatase Troponin I High Sens 170 H* Total Protein Albumin Globulin Lipase Urine Color Pamela Urine Clarity Clear Urine pH 5.0 Ur Specific [place] 1.025 Urine Protein 15 H Urine Glucose (UA) Normal Urine Ketones 5 H Urine Occult Blood Negative Urine Nitrite Negative Urine Bilirubin 1 H Urine Urobilinogen 4 H Ur Leukocyte Esterase 25 H Urine RBC 0 SEEN Urine WBC 0 SEEN Ur Squamous Epith Cells 0 SEEN Urine Bacteria 0 SEEN Hyaline Casts 0-5 SEEN Urine Mucus 0 SEEN Radiography Chest X-Ray - ED: 1 View and - (Chronic changes consistent with pulmonary fibrosis.) Diagnostic Testing: Clinical Impression(s) from Imaging Studies Brain CT 08/18/21 18:28 IMPRESSION: There are no acute intracranial findings. Electronically Signed: Sage Lipscomb MD at 19:08 EST , Service support , Chest X-Ray 08/18/21 18:28 IMPRESSION: Pulmonary findings appear worse. Electronically Signed: Sage Lipscomb MD at 19:08 EST , Service support , EKG Initial EKG: Attestation: I personally reviewed and interpreted this EKG as follows: Interpretation: Sinus Rhythm (Sinus at 62 with no acute ischemia. Lateral T wave flattening.) Treatment and Re-Evaluation Comments:: Patient's blood pressure responded to the Narcan and liter IV fluid bolus. Lab work reviewed. White count is elevated at 18.4. Hemoglobin is 8.6. Chemistry studies reveal a BUN of 58 and a creatinine of 2.11. I reviewed records from [place] in the time of discharge on August 13 her creatinine was 0.79. Lactic acid is normal at 1.2. Troponin is 185. It had been over 3000 when she was recently admitted to the hospital. Urinalysis shows no sign of infection. On repeat evaluation patient sitting upright in bed. She has no complaints. Blood pressure has dropped again and additional IV fluids have been ordered given the patient's renal failure. It does appear on prior visit that blood pressure would often run in the 80s systolic. Family does note that she tends to run a low blood pressure at baseline. Blood pressure is currently 86/49. I did discuss CODE STATUS with the daughter at bedside. She wishes for her mother to be DNR Comfort Care arrest without intubation. I will speak with hospitalist regarding admission for hydration and improvement in renal status. Blood cultures have been ordered given the patient's elevated white count. Delta troponin is being drawn at this time. Addendum: Prior to the hospitalist calling back patient's blood pressure did drop again. She was staying in the 60s and 70s systolic. I spoke with the patient's daughter regarding central line placement. She does give consent. Patient was placed in Trendelenburg position. Right IJ was visualized under ultrasound guidance. Triple-lumen catheter placed via modified Seldinger technique. Good blood flow and flushed from all 3 ports. Portable chest x-ray appears to show good line placement per my interpretation. Levophed is ordered. Discharge Plan Dx/Rx/DC Orders Clinical Impression: Acute renal failure, Leukocytosis, Hypotension Disposition Disposition: Acute Care Hospital [facility]
[2021-08-18 18:51] LABS: Lactic Acid 1.2 mmol/L (0.4-1.9)
[2021-08-18 19:04] LABS: AST(SGOT) 24 U/L (15-37); Alanine Aminotransfer ALT/SGPT 15 U/L (13-56); Alkaline Phosphatase 71 U/L (45-117); Anion Gap 8 (5-15); BUN 58 mg/dL (7-18); BUN/Creat Ratio 27.5 RATIO (10-20); Bilirubin, Direct 0.44 mg/dL (0.00-0.30); Calcium,Total 8.9 mg/dL (8.5-10.1); Chloride 106 mmol/L (98-107); Creatinine, Serum 2.11 mg/dL (0.55-1.02); EST Glomerular Filtration Rate 24 mL/min (>60); Est Glom Filt Rate - Afr Amer 29 mL/min (>60); Estimated Creatinine Clearance 16.83 ml/min; Globulin 3.9 g/dL (2.2-4.2); Glucose 103 mg/dL (74-106); Lipase 18 U/L (73-393); Potassium 4.9 mmol/L (3.5-5.1); Protein, Total 5.9 g/dL (6.4-8.2); Sodium Level 140 mmol/L (136-145); Troponin-I HS 185 pg/mL (3.0-54.0)
[2021-08-18 19:35] LABS: Bacteria 0 SEEN /hpf (None Seen); Mucous, Urine 0 SEEN /hpf (<or=2+); Red Blood Cells-Urine 0 SEEN /hpf (0-5); Squamous Epithelial Cells - UA 0 SEEN /hpf (5-10); White Blood Cells 0 SEEN /hpf (0-5)
[2021-08-18 19:37] LABS: Color, Urine Amber (Yellow); Glucose, Dipstick Normal (Normal); Ketone-Dipstick 5 mg/dl (Negative); Leukocyte Esterase-Dipstick 25 /ul (Negative); Nitrite-Dipstick Negative (Negative); Occult Blood-Urine Negative /ul (Negative); Protein-Dipstick 15 mg/dl (Negative); Specific Gravity, Urine 1.025 (1.002-1.030); Urine Clarity Clear (Clear); Urine Urobilinogen 4 mg/dl (Normal)
[2021-08-18 20:03] LABS: Urine Bilirubin Dipstick 1 mg/dL (Negative)
[2021-08-18 20:05] LABS: Hyaline Cast 0-5 SEEN /lpf (0-5)
[2021-08-18 20:18] LABS: Differential Comment SCANNED
[2021-08-18] MEDS: 0.9% Normal Saline 1,000 ML 100 ML IV (20:41)
[2021-08-18 21:08] LABS: Troponin-I HS 170 pg/mL (3.0-54.0)
--- NOTE | 2021-08-18 22:30 | RAD_ITS ---
STUDY: X-RAY CHEST REASON FOR EXAM: Female, 85 years old. Line placement TECHNIQUE: Frontal view COMPARISON: 08/18/2021 at 18:43 hours FINDINGS: Right sided venous line with tip in the proximal SVC. The lungs are expanded. Bilateral interstitial thickening/fibrosis. Mild bilateral patchy infiltrates. Normal size heart. Normal mediastinum and prema. Normal visualized pulmonary arteries. Normal visualized aortic arch and descending thoracic aorta. Degenerative changes of the thoracic spine. Old compression of the lower segment with previous vertebroplasty. Normal visualized ribs, clavicles, and shoulders. There is no demonstrated abnormality of the visualized soft tissue structures of the upper abdomen. RAD/CXR for Line Placement IMPRESSION: Bilateral interstitial prominence/fibrosis. Bilateral patchy infiltrates. Electronically Signed: Indra Goldberg DO at 23:19 EST Tel [phone], Service support ,
--- NOTE | 2021-08-18 22:44 | HP.PCM.HOS_ITS ---
HPI - General General Date of Admission: 08/18/21 HPI Narrative History was taken from emergency department doctor because patient is encephalopathic and is unable to provide information. Attempt was made to reach patient's contacts via phone. However the number listed in the hospital system was not going through. GUILLAUME AKINS, is a 85 F with a significant history of congestive heart failure with preserved ejection fraction; pulmonary fibrosis; and pulmonary hypertension who before this presentation had a non-STEMI and was brought to our hospital on 08/09/2021. Attempt was made to place stents in patient's coronary vessels at our hospital. However that was unsuccessful. Patient was transferred to outside hospital where a stent could be placed. Patient presents today (this day of presentation 08/18/2021) with altered mental status. Reportedly patient was less responsive and patient was staring. Her blood pressure was in the 80s. Respiratory rate was 6. Reportedly patient is on home morphine and oxycodone. Patient received Narcan at emergency department and her respiratory rate increased to 20. Patient was found to have an increase in her creatinine. At the emergency department patient was started on IV fluids and Levophed was also started. Emergent department doctor discussed CODE STATUS with patient's daughter who was at bedside. Per discussion between emergent department doctor and patient's daughter patient is a DNR CCA with no intubation. [facility] Medical History Atherosclerotic heart disease of [place] coronary artery without angina pectoris Depression History of left heart catheterization (LHC) (08/10/21) Medical History unable to obtain Home Medications Multivitamins,Therapeutic 1 tab DAILY 09/29/14 [History Last Taken 11/09/14 08:00 1] diclofenac sodium 50 mg PO DAILY 09/29/14 [History Last Taken 11/09/14 08:00 50 mg] oxycodone [OxyContin] 10 mg PO Q6H PRN PRN #30 tablet 10/01/14 [Rx Last Taken 11/09/14 14:00 10 mg] ergocalciferol (vitamin D2) [Vitamin D2] 50,000 unit PO QMONTH 11/09/14 [History Last Taken Unknown] citalopram 40 mg PO DAILY 08/09/21 [History Last Taken Unknown] dorzolamide drp OPHTHALMIC (EYE) BID 08/09/21 [History Last Taken Unknown] gabapentin 100 mg PO BID 08/09/21 [History Last Taken Unknown] latanoprost drp OPHTHALMIC (EYE) DAILY 08/09/21 [History Last Taken Unknown] oxybutynin chloride 5 mg PO DAILY 08/09/21 [History Last Taken Unknown] oxycodone 5 mg PO DAILY 08/09/21 [History Last Taken Unknown] pantoprazole 40 mg PO DAILY 08/09/21 [History Last Taken Unknown] timolol maleate drp OPHTHALMIC (EYE) BID 08/09/21 [History Last Taken Unknown] Allergy/AdvReac Type Severity Reaction Status Date / Time No Known Allergies Allergy Verified 08/09/21 17:42 Family History Other Heart disease Family History unable to obtain Surgical History History of appendectomy History of bilateral knee replacement History of hysterectomy Surgical History unable to obtain Social History household members: family housing: house number of children: 3 Smoking Status: Never smoker ROS Review of Systems ROS Unobtainable: due to encephalopathy Vital Signs Vital Signs Vital Signs: 08/18/21 18:08 08/18/21 18:19 08/18/21 18:36 Temperature 97.5 F L Temperature Source Temporal Pulse Rate 85 65 76 Respiratory Rate 6 L 6 L 24 H Blood Pressure 70/52 L 74/48 L 126/65 H Blood Pressure Mean 58 56 85 Pulse Ox 85 100 100 Oxygen Delivery Method Room Air Nasal Cannula Nasal Cannula Oxygen Flow Rate (L/min) 3 3 08/18/21 18:41 08/18/21 19:03 08/18/21 20:42 Temperature Temperature Source Pulse Rate 73 72 65 Respiratory Rate 21 H 11 L Blood Pressure 133/64 H 112/74 79/46 L Blood Pressure Mean 87 86 57 Pulse Ox 100 99 100 Oxygen Delivery Method Nasal Cannula Nasal Cannula Nasal Cannula Oxygen Flow Rate (L/min) 3 3 08/18/21 20:55 08/18/21 21:13 Temperature Temperature Source Pulse Rate 64 68 Respiratory Rate 14 16 Blood Pressure 86/49 L 86/49 L Blood Pressure Mean 61 61 Pulse Ox 100 100 Oxygen Delivery Method Oxygen Flow Rate (L/min) Weight Weight: 59.1 kg Body Mass Index (BMI) 22.4 Physical Exam Narrative Physical exam: General: Thin frame elderly female. Head: Normocephalic, atraumatic, no tenderness Eyes: PERRLA, EOMI ENT, no trauma, dry mucous membranes, no rhinorrhea Neck: Nontender, full range of motion, no spinal tenderness, deformities, step- off CVS: Regular rate and rhythm. S1-S2 present. No murmur, gallop or rub. Respiratory : clear to auscultation bilaterally, chest wall nontender, no wheezing Abdomen: Soft, nontender, nondistended, normal bowel sounds, no masses : Deferred Back: Kyphosis; Nontender, no CVA tenderness, no midline spinal tenderness. Extremities: Nontender full range of motion, no trauma Skin: Normal color, no trauma, abrasions Neuro: Alert. Gibberish conversation. Psychiatry: Normal mood. Normal affect. Results Lab / Micro Data Result Diagrams: 08/18/21 18:20 08/18/21 18:20 Labs: Laboratory Results - last 24 hr 08/18/21 18:20: WBC 18.4 H, RBC 3.02 L, Hgb 8.6 L, Hct 28.4 L, MCV 94.0, MCH 28.5, MCHC 30.3 L, RDW Std Deviation 49.1 H, RDW Coeff of Ivon 14.4, Plt Count 368, MPV 10.2, Immature Gran % (Auto) 0.900, Neut % (Auto) 87.1 H, Lymph % (Auto) 3.5 L, [place] % (Auto) 8.0, Eos % (Auto) 0.2, Baso % (Auto) 0.3, Absolute Neuts (auto) 16.0 H, Absolute Lymphs (auto) 0.65 L, Nucleated RBC % 0, Differential Comment SCANNED 08/18/21 18:20: Sodium 140, Potassium 4.9, Chloride 106, Carbon Dioxide 26.0, Anion Gap 8, BUN 58 H, Creatinine 2.11 H, Estim Creat Clear Calc 16.83, Est GFR (MDRD) Af Amer 29 L, Est GFR (MDRD) Non-Af 24 L, BUN/Creatinine Ratio 27.5 H, Glucose 103, Calcium 8.9, Total Bilirubin 0.70, Direct Bilirubin 0.44 H, AST 24, ALT 15, Alkaline Phosphatase 71, Troponin I High Sens 185 H*, Total Protein 5.9 L, Albumin 2.0 L, Globulin 3.9, Lipase 18 L 08/18/21 18:20: Lactic Acid 1.2 08/18/21 19:29: Urine Color Pamela, Urine Clarity Clear, Urine pH 5.0, Ur Specific [place] 1.025, Urine Protein 15 H, Urine Glucose (UA) Normal, Urine Ketones 5 H, Urine Occult Blood Negative, Urine Nitrite Negative, Urine Bilirubin 1 H, Urine Urobilinogen 4 H, Ur Leukocyte Esterase 25 H, Urine RBC 0 SEEN, Urine WBC 0 SEEN, Ur Squamous Epith Cells 0 SEEN, Urine Bacteria 0 SEEN, Hyaline Casts 0-5 SEEN, Urine Mucus 0 SEEN 08/18/21 20:35: Troponin I High Sens 170 H* Radiology Impression Brain CT 08/18/21 18:28 IMPRESSION: There are no acute intracranial findings. Electronically Signed: Sage Lipscomb MD at 19:08 EST , Service support , Chest X-Ray 08/18/21 18:28 IMPRESSION: Pulmonary findings appear worse. Electronically Signed: Sage Lipscomb MD at 19:08 EST , Service support , Assessment & Plan Assessment/Plan (1) Acute renal failure: QUALIFIERS: Acute renal failure type: unspecified Qualified Code(s): N17.9 - Acute kidney failure, unspecified (2) Acute metabolic encephalopathy: PLAN: Acute metabolic encephalopathy Likely secondary to uremia. Treatment as below Avoid sedating medications. JASON on CKD stage IV Creatinine presentation was 2.11. Review of records show that her creatinine on 08/10/2021 was 0.88 and on 08/09/2021 creatinine was 1.27. Received IV fluids at the emergency department and continued. Trend BMP. Avoid nephrotoxins. BUN over creatinine 27.5. Likely prerenal. Septic shock with unclear etiology Patient with a low-grade fever of 99.2. Patient is hypotensive with systolic blood pressure of less than 90. White count is 18.4. Review of urinalysis is unimpressive. No wound found on skin. Chest x-ray image was independently interpreted. Chest x-ray showed bilateral interstitial prominence/fibrosis. Bilateral patchy infiltrates. I agree with radiologist interpretation. Blood cultures were ordered at the emergency department. Will check lactic acid. Will check rapid Covid antigen. Will start patient empirically on vancomycin and cefepime. Will admit patient to intensive care and will consult computer systems hardware analyst. Moderate protein calorie malnutrition BMI of 19.5 kg/m? Ensure Enlive ordered. Nutritional consult. DVT prophylaxis: Subcutaneous heparin ordered. Charges/Coding Visit Charges Inpatient E&M: 34528 Init Hosp L3
[2021-08-19] VITALS (41 sets, daily range): BP systolic 74–135; BP diastolic 37–99; PULSE 64–80; RESP 14–22; TEMP 36.9–37.3; O2SAT 87–100; BMI 19.5
[2021-08-19] MEDS: 0.9% Normal Saline 1,000 ML 100 ML IV (02:00)
[2021-08-19] MEDS: Hydrocortisone Sod Succinate 100 MG/2 ML Vial 50 MG IV ×3 (04:24→23:12)
[2021-08-19 04:32] LABS: Absolute Lymphocyte Count 0.54 X10^3/uL (0.83-4.51); Absolute Neutrophil Count 18.7 X10^3/uL (2.0-7.7); Basophil# 0.07 X10^3/uL; Basophil% 0.3 % (0-1); Eosinophil# 0.04 X10^3/uL; Eosinophils% 0.2 % (0-5); Hematocrit 26.7 % (37-47); Hemoglobin 8.3 g/dL (12.0-15.0); Lymphocyte # 0.54 X10^3/ul (0.83-4.51); Lymphocyte % 2.5 % (19-41); Mean Corp Hgb Conc 31.1 g/dL (32-36); Mean Corpuscular Hgb 29.5 pg (27.0-32.0); Mean Platelet Vol. 10.2 fl (6.2-12.0); Monocyte# 1.94 X10^3/uL; Monocyte% 9.1 % (0-10); NRBC Flagged by Analyzer 0 % (0-5); Neutrophil # 18.65 X10^3/uL (2.7-7.7); Neutrophil % 87.5 % (47-70); POSITIVE DIFFERENTIAL YES; POSITIVE MORPHOLOGY YES; Platelet Count 439 K/mm3 (150-450); RBC Distribution Width CV 14.3 % (11.6-14.6); RBC Distribution Width SD 49.5 fl (35.1-43.9); Red Blood Count 2.81 M/mm3 (4.2-5.4); White Blood Count 21.3 K/mm3 (4.4-11.0)
[2021-08-19 04:38] LABS: Differential Indicated SCAN CRITERIA MET
[2021-08-19 04:55] LABS: Anion Gap 9 (5-15); BUN 58 mg/dL (7-18); BUN/Creat Ratio 29.6 RATIO (10-20); Calcium,Total 7.5 mg/dL (8.5-10.1); Chloride 111 mmol/L (98-107); Creatinine, Serum 1.96 mg/dL (0.55-1.02); EST Glomerular Filtration Rate 26 mL/min (>60); Est Glom Filt Rate - Afr Amer 31 mL/min (>60); Estimated Creatinine Clearance 17.09 ml/min; Glucose 107 mg/dL (74-106); Potassium 4.8 mmol/L (3.5-5.1); Sodium Level 141 mmol/L (136-145)
[2021-08-19 04:58] LABS: Lactic Acid 0.7 mmol/L (0.4-1.9)
--- NOTE | 2021-08-19 05:00 | PCM.RX.CS ---
Consult Pharmacy has been consulted to manage selected antiobiotic: Vancomycin Type of Consult: New start Labs: Sodium 141 mmol/L (136-145) 08/19/21 04:10 Potassium 4.8 mmol/L (3.5-5.1) 08/19/21 04:10 Chloride 111 mmol/L (98-107) H 08/19/21 04:10 Carbon Dioxide 21.0 mmol/L (21.0-32.0) 08/19/21 04:10 Anion Gap 9 (5-15) 08/19/21 04:10 BUN 58 mg/dL (7-18) H 08/19/21 04:10 Creatinine 1.96 mg/dL (0.55-1.02) H 08/19/21 04:10 Est GFR (MDRD) Af Amer 31 mL/min (>60) L 08/19/21 04:10 Est GFR (MDRD) Non-Af 26 mL/min (>60) L 08/19/21 04:10 BUN/Creatinine Ratio 29.6 RATIO (10-20) H 08/19/21 04:10 Glucose 107 mg/dL (74-106) H 08/19/21 04:10 Microbiology: Microbiology 08/19/21 04:10 Nasal Secretion SARS-CoV-2 Antigen (Rapid) - Final Goal Trough: 15-20 mcg/mL Pharmacy Plan for Drug Dosing: Pharmacy Service will continue to monitor and adjust dosing as required. Medications Discontinued Medications Vancomycin HCl 1,250 mg/ (Sodium Chloride) 275 mls @ 167 mls/hr IV X1 ONE Stop: 08/19/21 04:08 Last Admin: 08/19/21 04:22 Dose: 167 mls/hr Documented by: DRAW RANDOM LEVEL 08/21 WITH AM LABS AND EVALUATE AND DOSE AT THAT TIME PER CRCl < 20 Follow-Up Labs: Trough Vancomycin Labs to be done on [date and time ordered]: 08/21 @ 0600 RANDOM
[2021-08-19 05:06] LABS: Differential Comment SCANNED; Troponin-I HS 214 pg/mL (3.0-54.0)
--- NOTE | 2021-08-19 09:51 | EX.PCM.CONCC ---
Assessment & Plan Assessment/Plan (1) Hypotension: (2) Acute renal failure: QUALIFIERS: Acute renal failure type: unspecified Qualified Code(s): N17.9 - Acute kidney failure, unspecified (3) Acute metabolic encephalopathy: (4) Idiopathic pulmonary fibrosis: PLAN: RECOMMENDATIONS: 1. Continue pressors. Wean to maintain MAP greater than [address] Meyer to monitor urine output 3. Continue empiric antibiotics pending cultures 4. Wean oxygen as tolerated 5. Walking oximetry prior to discharge IMPRESSIONS: 1. Metabolic encephalopathy secondary to hypotension/shock Patient's metabolic encephalopathy appears to be improving. Patient did have significant hypotension and acute kidney injury on presentation. We will continue supportive measures. Patient reportedly does not have dementia at baseline. Patient is on some medications that are renally excreted and may have accumulated leading to presentation. Patient also reportedly has been choking recently, so aspiration pneumonia or UTI could lead to septic shock. Cultures are currently pending. Patient is on empiric antibiotics. Patient has received stress dose steroids, but initial leukocytosis may be secondary to endogenous response. Cortisol level will not be helpful at this time given patient is already received Solu-Cortef. 2. Acute kidney injury Unclear etiology. Patient does have a history of UTIs in the past. Patient has received significant contrast related to heart condition recently. Contrast-induced nephropathy would also be a concern. This does appear to be responding to supportive care. If not improving in the next 24 to 48 hours, may proceed with a full work-up. Meyer catheter will be placed to monitor urine output closely. 3. Reported IPF/CHF/osteoarthritis/advanced age/cachexia Complicates care, management, recovery and prognosis. Given baseline IPF, subclinical aspiration pneumonia could be present. Hold on the majority of her medications as patient can have significant delayed clearance secondary to renal function. Fentanyl can be used if necessary for pain. TIME: 32 minutes critical care time spent addressing patient's shock, acute kidney injury, metabolic encephalopathy, review of all data and collaboration with care team HPI Consult Data Date of Consult: 08/19/21 HPI Narrative HPI Narrative: GUILLAUME AKINS is an 85 F with past medical history listed below, who presents to [facility] on 08/18/2021 secondary to change in mental status. Patient was recently admitted at [facility] and [facility] secondary to CHF and non-ST elevation MT. Patient had a PCI attempt here that was unsuccessful and transferred to [place]. On the day of presentation, patient was noted to have decreased level of consciousness and unable to speak or drink, so was brought to the ER for evaluation. In the ER, patient was afebrile, but hypotensive as low as 74/48. Patient was initially 85% on room air and was requiring 3 L nasal cannula to maintain appropriate saturations. Laboratory work-up showed a white blood cell count of 18.4, hemoglobin of 8.6 and a platelet count of 368. Patient had significant increase in BUN and creatinine at 58/2.11. Lactate was normal at 1.2 and high-sensitivity troponin was slightly elevated at 185. Liver enzymes were relatively unremarkable. UA was unremarkable. A CT of the head was showing only age-related changes. Patient was noted to have a slightly increased infiltrates on chest x-ray. Given hypotension, patient had a central line and was initiated on pressor agents. Patient was subsequently transferred to the intensive care unit. Since being in the intensive care unit, patient has been relatively stable. Patient did have significant increase in her Levophed requirements and vasopressin was ordered, but never started. This morning, patient is interactive, but still confused. Discussion with patient's daughter is that over the last 2 to 3 days she has had some decreased urine output and p.o. intake. Patient had also had some coughing associated with attempts at shakes. Review of systems was unable to be fully obtained secondary to mental status. [facility] History Atherosclerotic heart disease of [place] coronary artery without angina pectoris Depression History of left heart catheterization (LHC) (08/10/21) Medical History unable to obtain Home Medications Multivitamins,Therapeutic 1 tab DAILY 09/29/14 [History Last Taken 11/09/14 08:00 1] diclofenac sodium 50 mg PO DAILY 09/29/14 [History Last Taken 11/09/14 08:00 50 mg] oxycodone [OxyContin] 10 mg PO Q6H PRN PRN #30 tablet 10/01/14 [Rx Last Taken 11/09/14 14:00 10 mg] ergocalciferol (vitamin D2) [Vitamin D2] 50,000 unit PO QMONTH 11/09/14 [History Last Taken Unknown] citalopram 40 mg PO DAILY 08/09/21 [History Last Taken Unknown] dorzolamide drp OPHTHALMIC (EYE) BID 08/09/21 [History Last Taken Unknown] gabapentin 100 mg PO BID 08/09/21 [History Last Taken Unknown] latanoprost drp OPHTHALMIC (EYE) DAILY 08/09/21 [History Last Taken Unknown] oxybutynin chloride 5 mg PO DAILY 08/09/21 [History Last Taken Unknown] oxycodone 5 mg PO DAILY 08/09/21 [History Last Taken Unknown] pantoprazole 40 mg PO DAILY 08/09/21 [History Last Taken Unknown] timolol maleate drp OPHTHALMIC (EYE) BID 08/09/21 [History Last Taken Unknown] Allergy/AdvReac Type Severity Reaction Status Date / Time No Known Allergies Allergy Verified 08/09/21 17:42 Family History Other Heart disease Family History unable to obtain Surgical History History of appendectomy History of bilateral knee replacement History of hysterectomy Surgical History unable to obtain Social History household members: family housing: house number of children: 3 Smoking Status: Never smoker ROS ROS Narrative See HPI Physical Exam Const alert and no apparent distress General Appearance: cooperative, comfortable and well kempt Orientation / Consciousness: awake and oriented to person; Negative for oriented to place or oriented to time Exam Limitations: no limitations Nutritional Appearance: cachectic HEENT normocephalic and head/scalp atraumatic HEENT Narrative: Temporal wasting noted. Eyes PERRL, EOMs intact bilaterally and conjunctivae normal Chest inspection of chest normal Chest: symmetrical chest wall rise; Negative for crepitus Resp Resp Narrative: On 3L of oxygen by nasal canula Auscultation: rales and diminished lung sounds; Negative for rhonchi or wheezes Percussion: percussion normal Cardio regular rate, regular rhythm, S1 normal heart sound and S2 normal heart sound Heart Sounds: murmur systolic III/ apex GI normal to inspection, nondistended, normoactive bowel sounds, soft to palpation, non-tender and non-distended Extremity normal to inspection, full ROM and no clubbing, cyanosis or edema Skin no rashes or lesions noted Neuro oriented x3, CN's II-XII intact bilaterally and moves all extremities Sensorium / Orientation: awake and alert Lab / Micro Data Result Diagrams: 08/19/21 04:10 08/19/21 04:10 Labs: Laboratory Results - last 24 hr 08/18/21 18:20: WBC 18.4 H, RBC 3.02 L, Hgb 8.6 L, Hct 28.4 L, MCV 94.0, MCH 28.5, MCHC 30.3 L, RDW Std Deviation 49.1 H, RDW Coeff of Ivon 14.4, Plt Count 368, MPV 10.2, Immature Gran % (Auto) 0.900, Neut % (Auto) 87.1 H, Lymph % (Auto) 3.5 L, [place] % (Auto) 8.0, Eos % (Auto) 0.2, Baso % (Auto) 0.3, Absolute Neuts (auto) 16.0 H, Absolute Lymphs (auto) 0.65 L, Nucleated RBC % 0, Differential Comment SCANNED 08/18/21 18:20: Sodium 140, Potassium 4.9, Chloride 106, Carbon Dioxide 26.0, Anion Gap 8, BUN 58 H, Creatinine 2.11 H, Estim Creat Clear Calc 16.83, Est GFR (MDRD) Af Amer 29 L, Est GFR (MDRD) Non-Af 24 L, BUN/Creatinine Ratio 27.5 H, Glucose 103, Calcium 8.9, Total Bilirubin 0.70, Direct Bilirubin 0.44 H, AST 24, ALT 15, Alkaline Phosphatase 71, Troponin I High Sens 185 H*, Total Protein 5.9 L, Albumin 2.0 L, Globulin 3.9, Lipase 18 L 08/18/21 18:20: Lactic Acid 1.2 08/18/21 19:29: Urine Color Pamela, Urine Clarity Clear, Urine pH 5.0, Ur Specific [place] 1.025, Urine Protein 15 H, Urine Glucose (UA) Normal, Urine Ketones 5 H, Urine Occult Blood Negative, Urine Nitrite Negative, Urine Bilirubin 1 H, Urine Urobilinogen 4 H, Ur Leukocyte Esterase 25 H, Urine RBC 0 SEEN, Urine WBC 0 SEEN, Ur Squamous Epith Cells 0 SEEN, Urine Bacteria 0 SEEN, Hyaline Casts 0-5 SEEN, Urine Mucus 0 SEEN 08/18/21 20:35: Troponin I High Sens 170 H* 08/19/21 04:10: WBC 21.3 H, RBC 2.81 L, Hgb 8.3 L, Hct 26.7 L, MCV 95.0, MCH 29.5, MCHC 31.1 L, RDW Std Deviation 49.5 H, RDW Coeff of [place]von 14.3, Plt Count 439, MPV 10.2, Immature Gran % (Auto) 0.400, Neut % (Auto) 87.5 H, Lymph % (Auto) 2.5 L, [place] % (Auto) 9.1, Eos % (Auto) 0.2, Baso % (Auto) 0.3, Absolute Neuts (auto) 18.7 H, Absolute Lymphs (auto) 0.54 L, Nucleated RBC % 0, Differential Comment SCANNED, Diff Path Review December08/19/21 04:10: Sodium 141, Potassium 4.8, Chloride 111 H, Carbon Dioxide 21.0, Anion Gap 9, BUN 58 H, Creatinine 1.96 H, Estim Creat Clear Calc 17.09, Est GFR (MDRD) Af Amer 31 L, Est GFR (MDRD) Non-Af 26 L, BUN/Creatinine Ratio 29.6 H, Glucose 107 H, Calcium 7.5 L 08/19/21 04:10: Lactic Acid 0.7 08/19/21 04:10: Troponin I High Sens 214 H* Micro: Microbiology 08/19/21 04:10 Nasal Secretion SARS-CoV-2 Antigen (Rapid) - Final Radiology Impression Brain CT 08/18/21 18:28 IMPRESSION: There are no acute intracranial findings. Electronically Signed: Sage Lipscomb MD at 19:08 EST , Service support , Chest X-Ray 08/18/21 18:28 IMPRESSION: Pulmonary findings appear worse. Electronically Signed: Sage Lipscomb MD at 19:08 EST , Service support , Chest X-Ray 08/18/21 22:30 IMPRESSION: Bilateral interstitial prominence/fibrosis. Bilateral patchy infiltrates. Electronically Signed: Indra Goldberg DO at 23:19 EST Tel [phone], Service support , Charges/Coding Procedures Hospitalists Procedures: [id number] Critial Care 1st Hr
[2021-08-19] MEDS: Heparin Injection (Vial) 5,000 UNIT/ML VIAL 5000 UNIT SC ×2 (11:07→23:12)
--- NOTE | 2021-08-19 12:40 | CASEMGMT ---
VITALY PROCTOR readmission note: Prior admission: Admitted 08/09/21 w/unstable angina/NSTEMI. PCI was attempted w/out success and pt transferred to [facility] 08/10/22 where she had cardiac stent placed successfully. Pt was discharged from [place] on ASA and Plavix. VITALY PROCTOR to room for initial transition planning/care coordination assessment. VITALY PROCTOR introduced self and role at [facility]. Pt sitting up in recliner chair in room. Confused. Dtr, Cecilia, is in room visiting. Per Cecilia, pt is not confused @ baseline. Care providers, pharmacy, and demographics verified/updated at this time. PCP: Danis Aj Specialists: None. Preferred Pharmacy: [facility] in [place] Insurance: [facility], AARP Prescription Benefit: Yes Living Will/HPOA: Has both. Cecilia states she is listed as primary HPOA and pt's other daughter, Mitzy Alvarez, is listed as 1st alternative. Cecilia made aware copies of AD are not on file @ [facility]. She states she will bring them in. LNOK: Dtr/THANG, Cecilia. Dtr, Mitzy. Son. Living Arrangements: Lives with Cecilia and son-in-law, Damon, in one-story home w/2 steps to enter. Cecilia and Damon help to take care of pt and manage all home tasks, meds, and appts. Pt was able to ambulate w/use of walker on her own up until about a week or so. Since then, Cecilia or Damon have been assisting pt when she is up walking. Transportation: Cecilia and Damon DME: Has the following DME: shower chair, BSC, cane, walker, rollator, W/C, adjustable bed, pulse ox, BP machine, nebulizer, and O2 @ 3l/m through [facility]. Has concentrator and [employer] portable oxygen concentrator, which Cecilia can bring in @ d/c for pt to go home on. HHC/SNF: Hx of going to [facility] and has had HHC in the past. Cecilia states she wishes for pt to return home @ discharge w/HHC. [facility], but no one has contacted her yet for SOC. She states if [facility] calls her she plans to cancel w/them, as she wants [facility] instead. She would like SN and therapy. She states does not need an aide. PLAN: Home w/family support and discharge plans in place. Adriana JACKSON RN CM
[2021-08-19 13:27] LABS: Pathologist Review Reviewed
[2021-08-19 15:01] LABS: Anion Gap 11 (5-15); BUN 63 mg/dL (7-18); BUN/Creat Ratio 31.7 RATIO (10-20); Calcium,Total 7.7 mg/dL (8.5-10.1); Chloride 115 mmol/L (98-107); Creatinine, Serum 1.99 mg/dL (0.55-1.02); EST Glomerular Filtration Rate 25 mL/min (>60); Est Glom Filt Rate - Afr Amer 31 mL/min (>60); Estimated Creatinine Clearance 16.84 ml/min; Glucose 131 mg/dL (74-106); Potassium 4.7 mmol/L (3.5-5.1); Sodium Level 144 mmol/L (136-145)
[2021-08-19] MEDS: 0.9% Normal Saline 1,000 ML 75 ML IV (15:29)
--- NOTE | 2021-08-19 16:34 | PCM.PN.HOSP ---
Subjective Subjective She is alert but confused and reading prior notes this remains unchanged for this admission. She will go up on her Levophed but has been stabilized and never needed the vasopressin started. She is maintaining her own airway Objective Data Objective Data Vital Signs: Vital Signs Temp Pulse Resp BP Pulse Ox 99.2 F H 69 16 120/56 L 87 08/19/21 01:30 08/19/21 07:00 08/19/21 07:00 08/19/21 09:35 08/19/21 11:28 Oxygen Flow Rate (L/min) 4 Oxygen Delivery Method Nasal Cannula Weight: 113 lb 12.136 oz Body Mass Index (BMI) 19.5 Intake & Output: Intake and Output for Last 24 Hours 08/18/21 08/19/21 08/20/21 03:59 03:59 03:59 Intake Total 2760.37 / 2772.10 1614.63 / 1614.63 Output Total 425 / 425 Balance 2760.37 / 2772.10 1189.63 / 1189.63 Medical Nutrition Assessment Dietitian: Malnutrition Criteria Met Start: 08/19/21 11:20 Freq: Status: Active Protocol: Document 08/19/21 11:20 AG (Rec: 08/19/21 11:20 AG [id number]) Nutrition Malnutrition Evidence of Malnutrition Exists Yes Evidenced By Suboptimal Energy Intake ( Severe),Weight Loss (Severe), Physical Changes (Severe) Clinical Problem Chronic Disease or Condition Related Malnutrition Etiology severe, chronic malnutrition r /t inadequate energy intake w/ decreased energy intake w/ advanced age Signs/Symptoms as evidenced by unintentional wt loss of 36.2#/24% wt loss x 1 year, estimated PO intake meeting <75% of estimated energy needs >3 months Status Active Problem Recommendation Dietitian Recommendations/Changes regular diet- will monitor renal function and adjust diet as indicated; however at this time it does not appear that PO intake is influencing renal function. Continue ensure w/ medpass as pt tolerates. Lab / Micro Data Result Diagrams: 08/19/21 04:10 08/19/21 14:35 Labs: Laboratory Results - last 24 hr 08/18/21 18:20: WBC 18.4 H, RBC 3.02 L, Hgb 8.6 L, Hct 28.4 L, MCV 94.0, MCH 28.5, MCHC 30.3 L, RDW Std Deviation 49.1 H, RDW Coeff of Ivon 14.4, Plt Count 368, MPV 10.2, Immature Gran % (Auto) 0.900, Neut % (Auto) 87.1 H, Lymph % (Auto) 3.5 L, [place] % (Auto) 8.0, Eos % (Auto) 0.2, Baso % (Auto) 0.3, Absolute Neuts (auto) 16.0 H, Absolute Lymphs (auto) 0.65 L, Nucleated RBC % 0, Differential Comment SCANNED 08/18/21 18:20: Sodium 140, Potassium 4.9, Chloride 106, Carbon Dioxide 26.0, Anion Gap 8, BUN 58 H, Creatinine 2.11 H, Estim Creat Clear Calc 16.83, Est GFR (MDRD) Af Amer 29 L, Est GFR (MDRD) Non-Af 24 L, BUN/Creatinine Ratio 27.5 H, Glucose 103, Calcium 8.9, Total Bilirubin 0.70, Direct Bilirubin 0.44 H, AST 24, ALT 15, Alkaline Phosphatase 71, Troponin I High Sens 185 H*, Total Protein 5.9 L, Albumin 2.0 L, Globulin 3.9, Lipase 18 L 08/18/21 18:20: Lactic Acid 1.2 08/18/21 19:29: Urine Color Pamela, Urine Clarity Clear, Urine pH 5.0, Ur Specific [place] 1.025, Urine Protein 15 H, Urine Glucose (UA) Normal, Urine Ketones 5 H, Urine Occult Blood Negative, Urine Nitrite Negative, Urine Bilirubin 1 H, Urine Urobilinogen 4 H, Ur Leukocyte Esterase 25 H, Urine RBC 0 SEEN, Urine WBC 0 SEEN, Ur Squamous Epith Cells 0 SEEN, Urine Bacteria 0 SEEN, Hyaline Casts 0-5 SEEN, Urine Mucus 0 SEEN 08/18/21 20:35: Troponin I High Sens 170 H* 08/19/21 04:10: WBC 21.3 H, RBC 2.81 L, Hgb 8.3 L, Hct 26.7 L, MCV 95.0, MCH 29.5, MCHC 31.1 L, RDW Std Deviation 49.5 H, RDW Coeff of Ivon 14.3, Plt Count 439, MPV 10.2, Immature Gran % (Auto) 0.400, Neut % (Auto) 87.5 H, Lymph % (Auto) 2.5 L, [place] % (Auto) 9.1, Eos % (Auto) 0.2, Baso % (Auto) 0.3, Absolute Neuts (auto) 18.7 H, Absolute Lymphs (auto) 0.54 L, Nucleated RBC % 0, Differential Comment SCANNED, Diff Path Review Reviewed 08/19/21 04:10: Sodium 141, Potassium 4.8, Chloride 111 H, Carbon Dioxide 21.0, Anion Gap 9, BUN 58 H, Creatinine 1.96 H, Estim Creat Clear Calc 17.09, Est GFR (MDRD) Af Amer 31 L, Est GFR (MDRD) Non-Af 26 L, BUN/Creatinine Ratio 29.6 H, Glucose 107 H, Calcium 7.5 L 08/19/21 04:10: Lactic Acid 0.7 08/19/21 04:10: Troponin I High Sens 214 H* 08/19/21 14:35: Sodium 144, Potassium 4.7, Chloride 115 H, Carbon Dioxide 18.0 L, Anion Gap 11, BUN 63 H, Creatinine 1.99 H, Estim Creat Clear Calc 16.84, Est GFR (MDRD) Af Amer 31 L, Est GFR (MDRD) Non-Af 25 L, BUN/Creatinine Ratio 31.7 H, Glucose 131 H, Calcium 7.7 L Micro: Microbiology 08/19/21 04:10 Nasal Secretion SARS-CoV-2 Antigen (Rapid) - Final Radiography Diagnostic Testing: Radiology Impression Brain CT 08/18/21 18:28 IMPRESSION: There are no acute intracranial findings. Electronically Signed: Sage Lipscomb MD at 19:08 EST , Service support , Chest X-Ray 08/18/21 18:28 IMPRESSION: Pulmonary findings appear worse. Electronically Signed: Sage Lipscomb MD at 19:08 EST , Service support , Chest X-Ray 08/18/21 22:30 IMPRESSION: Bilateral interstitial prominence/fibrosis. Bilateral patchy infiltrates. Electronically Signed: Indra Goldberg DO at 23:19 EST Tel [phone], Service support , Physical Exam Const alert and no apparent distress HEENT moist oral mucous membranes Head and Scalp: normocephalic Eyes PERRL, EOMs intact bilaterally and conjunctivae normal Neck supple and no JVD Resp normal respiratory effort, no retractions and no use of accessory muscles Auscultation: crackles; Negative for rales, rhonchi or wheezes Cardio regular rate, regular rhythm, S1 normal heart sound and S2 normal heart sound Heart Sounds: murmur GI soft to palpation, non-tender and non-distended; Negative for hepatosplenomegaly Extremity no clubbing, cyanosis or edema Skin no rashes or lesions noted Neuro no focal motor deficits and no sensory deficits noted Psych Mood & Affect: flat affect Thought Process: confused Assessment & Plan Assessment/Plan (1) Acute renal failure: QUALIFIERS: Acute renal failure type: unspecified Qualified Code(s): N17.9 - Acute kidney failure, unspecified (2) Acute metabolic encephalopathy: PLAN: 1. Acute metabolic encephalopathy secondary to hypotension/JASON with possible CKD unknown stage ? Infection is a possibility leading to the septic shock cultures are pending she does have bilateral patchy infiltrates ? With Levophed, try to wean as able. Has not needed vasopressin ? Continue with IV fluids ? Baseline creatinine is around 1 currently she is 1.99, will continue to monitor ? Continue with broad-spectrum antibiotics 2. CAD status post stent/HTN/HLD ? She has had significant contrast load recently which could also explain her kidney disease ? Continue with her aspirin and Plavix when she is alert enough to take it, as risk currently rectal ? Continue with her Lipitor when able to take p.o. ? Continue with number to when she is to take p.o. 3. Anxiety/depression ? Stable ? Can continue with citalopram as able to take p.o. DVT: Heparin Charges/Coding Visit Charges Inpatient E&M: 37430 Subs Hosp L2
--- NOTE | 2021-08-19 17:34 | CASEMGMT ---
VITALY PROCTOR readmission note: Prior admission: Admitted 08/09/21 w/unstable angina/NSTEMI. PCI was attempted w/out success and pt transferred to [facility] 08/10/22 where she had cardiac stent placed successfully. Pt was discharged from [place] on ASA and Plavix. VITALY PROCTOR to room for initial transition planning/care coordination assessment. VITALY PROCTOR introduced self and role at [facility]. Pt sitting up in recliner chair in room. Confused. Dtr, Cecilia, is in room visiting. Care providers, pharmacy, and demographics verified/updated at this time. PCP: Danis Aj Specialists: None. Pt used to see motion graphics designer, but PCP has been managing Preferred Pharmacy: Insurance: Prescription Benefit: Living Will/HPOA: Pt does not currently have LW/HCPOA and declines info at this time. Pt made aware that he can contact SW as an out-pt and make appt in the future if he decides he would like to talk with someone about this or would like to utilize [facility] social work for advanced directive completion. Given Drug Abuse Program Coordinator Rac card with information and contact number. Pt expresses understanding. States does not have LW or HCPOA . Interested in more information but states does not want to talk with SW at this time to complete paperwork. Provided information on advanced directives and given [employer] rac card with number to call if chooses in the future to utilize [facility] social work for advanced directive completion. Educated patient that, if patient so chooses, can come back to [facility] and meet with a SW as an outpatient to complete health care advanced directives. Patient expresses understanding. LNOK: Living Arrangements: Transportation: Pt states drives self and states no transportation concerns at this time. DME: Denies using any DME and denies needs. States has the following DME: Pt states no need for further DME at this time. HHC/SNF: Pt wishes to return home and states has no concerns with going home at time of discharge. Pt states does not smoke or drink ETOH. CM to follow for home oxygen needs and any further discharge planning/needs. Pt voices no further concerns/needs at this time. Advised pt to ask for CM if any further questions/concerns/needs arise. Voices understanding. PLAN: Adriana JACKSON RN, CM
[2021-08-19] MEDS: Aspirin 300 MG Suppository RC (18:54)
[2021-08-19] MEDS: Clopidogrel Bisulfate 75 MG Tablet PO (18:55)
[2021-08-19] MEDS: 0.9% Saline Lock 10 ML Syringe IV (23:15)
[2021-08-20] VITALS (32 sets, daily range): BP systolic 97–152; BP diastolic 56–91; PULSE 64–91; RESP 14–30; TEMP 36.8–37.4; O2SAT 95–100
[2021-08-20] MEDS: TITRATION PARAMETER CHANGE 1 EACH IV (03:46)
[2021-08-20] MEDS: 0.9% Normal Saline 1,000 ML 75 ML IV (05:04)
[2021-08-20] MEDS: Hydrocortisone Sod Succinate 100 MG/2 ML Vial 50 MG IV ×3 (06:23→21:02)
[2021-08-20] MEDS: 0.9% Saline Lock 10 ML Syringe IV (06:25)
[2021-08-20 06:41] LABS: Absolute Lymphocyte Count 0.33 X10^3/uL (0.83-4.51); Absolute Neutrophil Count 10.3 X10^3/uL (2.0-7.7); Basophil# 0.01 X10^3/uL; Basophil% 0.1 % (0-1); Hemoglobin 7.7 g/dL (12.0-15.0); Lymphocyte # 0.33 X10^3/ul (0.83-4.51); Lymphocyte % 2.9 % (19-41); Mean Corp Hgb Conc 30.8 g/dL (32-36); Mean Corpuscular Hgb 28.8 pg (27.0-32.0); Mean Corpuscular Volume 93.6 fL (81-99); Mean Platelet Vol. 9.8 fl (6.2-12.0); Monocyte# 0.78 X10^3/uL; Monocyte% 6.8 % (0-10); NRBC Flagged by Analyzer 0 % (0-5); Neutrophil # 10.25 X10^3/uL (2.7-7.7); Neutrophil % 89.8 % (47-70); POSITIVE DIFFERENTIAL YES; POSITIVE MORPHOLOGY YES; Platelet Count 365 K/mm3 (150-450); RBC Distribution Width CV 14.7 % (11.6-14.6); RBC Distribution Width SD 50.2 fl (35.1-43.9); Red Blood Count 2.67 M/mm3 (4.2-5.4); White Blood Count 11.4 K/mm3 (4.4-11.0)
[2021-08-20 06:53] LABS: Anion Gap 10 (5-15); BUN 60 mg/dL (7-18); BUN/Creat Ratio 40.3 RATIO (10-20); Calcium,Total 7.7 mg/dL (8.5-10.1); Chloride 120 mmol/L (98-107); Creatinine, Serum 1.49 mg/dL (0.55-1.02); EST Glomerular Filtration Rate 35 mL/min (>60); Est Glom Filt Rate - Afr Amer 43 mL/min (>60); Estimated Creatinine Clearance 23.84 ml/min; Glucose 111 mg/dL (74-106); Potassium 4.4 mmol/L (3.5-5.1); Sodium Level 148 mmol/L (136-145)
[2021-08-20 07:05] LABS: Differential Indicated SCAN CRITERIA MET
--- NOTE | 2021-08-20 07:09 | PN.CC_ITS ---
Assessment & Plan Assessment/Plan (1) Hypotension: (2) Acute renal failure: QUALIFIERS: Acute renal failure type: unspecified Qualified Code(s): N17.9 - Acute kidney failure, unspecified (3) Acute metabolic encephalopathy: (4) Idiopathic pulmonary fibrosis: PLAN: RECOMMENDATIONS: 1. Continue pressors. Wean to maintain MAP greater than 65 2. Transition IV fluids to D5 half-normal saline 3. Continue empiric antibiotics pending cultures 4. Wean oxygen as tolerated 5. Walking oximetry prior to discharge IMPRESSIONS: 1. Metabolic encephalopathy secondary to hypotension/shock Patient's metabolic encephalopathy appears to be improving. Patient did have significant hypotension and acute kidney injury on presentation. We will continue supportive measures. Patient reportedly does not have dementia at baseline. Patient is on some medications that are renally excreted and may have accumulated leading to presentation. Patient's alertness is improved today, but still confused. Patient also reportedly has been choking recently, so aspiration pneumonia or UTI could lead to septic shock. Cultures are currently pending. Patient is on empiric antibiotics. Patient has received stress dose steroids, but initial leukocytosis may be secondary to endogenous response. Cortisol level will not be helpful at this time given patient is already received Solu-Cortef. Discontinue steroids once patient is off pressors. 2. Acute kidney injury/hypernatremia/hyperchloremia Unclear etiology. Patient does have a history of UTIs in the past. Patient has received significant contrast related to heart condition recently. Contrast-induced nephropathy would also be a concern. This does appear to be r esponding to supportive care. We will transition IV fluids given the development of hypernatremia and hyperchloremia Meyer catheter will be placed to monitor urine output closely. 3. Reported IPF/CHF/osteoarthritis/advanced age/cachexia Complicates care, management, recovery and prognosis. Given baseline IPF, subclinical aspiration pneumonia could be present. Hold on the majority of her medications as patient can have significant delayed clearance secondary to renal function. Fentanyl can be used if necessary for pain. TIME: 33 minutes critical care time spent addressing patient's shock, acute kidney injury, metabolic encephalopathy, review of all data and collaboration with care team Subjective Subjective Patient did okay overnight. Patient remains significantly confused throughout the evening. Patient has remained on 2 L nasal cannula. Patient has had significant improvement in her pressor requirements. Patient is more interact radha, but oriented to self only. Patient readily admits that she feels foggy. Patient is denying any pain at this time Objective Data Objective Data Vital Signs: Vital Signs Temp Pulse Resp BP Pulse Ox 37.0 C 68 21 H 126/70 H 98 08/20/21 07:00 08/20/21 07:00 08/20/21 07:00 08/20/21 07:00 08/20/21 07:00 Oxygen Flow Rate (L/min) 2 Oxygen Delivery Method Nasal Cannula Weight: 55.4 kg Body Mass Index (BMI) 19.5 Intake & Output: Intake and Output for Last 24 Hours 08/18/21 08/19/21 08/20/21 23:59 23:59 23:59 Intake Total 2661.19 / 2679.99 1100.05 / 1100.05 Output Total 710 / 710 380 / 380 Balance 1951.19 / 1969.99 720.05 / 720.05 Medical Nutrition Assessment Dietitian: Malnutrition Criteria Met Start: 08/19/21 11:20 Freq: Status: Active Protocol: Document 08/19/21 11:20 AG (Rec: 08/19/21 11:20 AG [id number]) Nutrition Malnutrition Evidence of Malnutrition Exists Yes Evidenced By Suboptimal Energy Intake ( Severe),Weight Loss (Severe), Physical Changes (Severe) Clinical Problem Chronic Disease or Condition Related Malnutrition Etiology severe, chronic malnutrition r /t inadequate energy intake w/ decreased energy intake w/ advanced age Signs/Symptoms as evidenced by unintentional wt loss of 36.2#/24% wt loss x 1 year, estimated PO intake meeting <75% of estimated energy needs >3 months Status Active Problem Recommendation Dietitian Recommendations/Changes regular diet- will monitor renal function and adjust diet as indicated; however at this time it does not appear that PO intake is influencing renal function. Continue ensure w/ medpass as pt tolerates. Lab / Micro Data Result Diagrams: 08/20/21 06:20 08/20/21 06:20 Labs: Laboratory Results - last 24 hr 08/19/21 04:10: Diff Path Review Reviewed 08/19/21 14:35: Sodium 144, Potassium 4.7, Chloride 115 H, Carbon Dioxide 18.0 L , Anion Gap 11, BUN 63 H, Creatinine 1.99 H, Estim Creat Clear Calc 16.84, Est GFR (MDRD) Af Amer 31 L, Est GFR (MDRD) Non-Af 25 L, BUN/Creatinine Ratio 31.7 H , Glucose 131 H, Calcium 7.7 L 08/20/21 06:20: WBC 11.4 H, RBC 2.67 L, Hgb 7.7 L, Hct 25.0 L, MCV 93.6, MCH 28.8, MCHC 30.8 L, RDW Std Deviation 50.2 H, RDW Coeff of Ivon 14.7 H, Plt Count 365, MPV 9.8, Immature Gran % (Auto) 0.400, Neut % (Auto) 89.8 H, Lymph % (Auto) 2.9 L, [place] % (Auto) 6.8, Eos % (Auto) 0.0, Baso % (Auto) 0.1, Absolute Neuts (auto) 10.3 H, Absolute Lymphs (auto) 0.33 L, Nucleated RBC % 0 08/20/21 06:20: Sodium 148 H, Potassium 4.4, Chloride 120 H, Carbon Dioxide 18.0 L, Anion Gap 10, BUN 60 H, Creatinine 1.49 H, Estim Creat Clear Calc 23.84, Est GFR (MDRD) Af Amer 43 L, Est GFR (MDRD) Non-Af 35 L, BUN/Creatinine Ratio 40.3 H , Glucose 111 H, Calcium 7.7 L Micro: Microbiology 08/19/21 04:10 Nasal Secretion SARS-CoV-2 Antigen (Rapid) - Final Physical Exam Const alert and no apparent distress General Appearance: cooperative, comfortable and well kempt Orientation / Consciousness: awake and oriented to person; Negative for oriented to place or oriented to time Exam Limitations: no limitations Nutritional Appearance: cachectic HEENT normocephalic and head/scalp atraumatic HEENT Narrative: Temporal wasting noted. Eyes PERRL, EOMs intact bilaterally and conjunctivae normal Chest inspection of chest normal Chest: symmetrical chest wall rise; Negative for crepitus Resp Resp Narrative: On 2L of oxygen by nasal canula Auscultation: rales and diminished lung sounds; Negative for rhonchi or wheezes Percussion: percussion normal Cardio regular rate, regular rhythm, S1 normal heart sound and S2 normal heart sound Heart Sounds: murmur systolic III/ apex GI normal to inspection, nondistended, normoactive bowel sounds, soft to palpation, non-tender and non-distended Extremity normal to inspection, full ROM and no clubbing, cyanosis or edema Skin no rashes or lesions noted Neuro oriented x3, CN's II-XII intact bilaterally and moves all extremities Sensorium / Orientation: awake and alert Charges/Coding Procedures Hospitalists Procedures: 02403 Critial Care 1st Hr
[2021-08-20 07:52] LABS: Differential Comment SCANNED
[2021-08-20] MEDS: Dext 5%-0.45% NS 1,000 ML 75 ML IV ×2 (08:01→21:02)
[2021-08-20] MEDS: Haloperidol Lactate 5 MG/ML Vial IV ×3 (09:30→21:08)
--- NOTE | 2021-08-20 10:45 | CASEMGMT ---
Addendum entered by Mary Anne Yepez 08/20/21 14:54: VITALY PROCTOR called a made referral to [facility]. Naomi at [facility] reviewing and will call back if able to accept. HITESH will continue to follow this patient and plan for a safe discharge. Original Note: VITALY PROCTOR in to speak with daughter regarding discharge planning. Daughter provided Living Will and HPOA, VITALY PROCTOR copied and placed in chart. Daughter states she would like to take patient home with [facility] and prefers [facility]. Daughter would like snf, PT/OT, and TOOL ADJUSTER. VITALY PROCTOR will call [facility] and make referral. HITESH will continue to follow this patient and plan for safe discharge.
--- NOTE | 2021-08-20 10:47 | PN.HOSP_ITS ---
Subjective Subjective More delirious today however she is coming down on Levophed as well. Renal function has improved, however her hemoglobin is dropped to 7.7 Objective Data Objective Data Vital Signs: Vital Signs Temp Pulse Resp BP Pulse Ox 98.9 F 82 29 H 152/80 H 100 08/20/21 10:00 08/20/21 10:00 08/20/21 10:00 08/20/21 10:00 08/20/21 10:00 Oxygen Flow Rate (L/min) 2 Oxygen Delivery Method Nasal Cannula Weight: 122 lb 2.177 oz Body Mass Index (BMI) 19.5 Intake & Output: Intake and Output for Last 24 Hours 08/19/21 08/20/21 08/21/21 03:59 03:59 03:59 Intake Total 2760.37 / 2772.10 1983.54 / 1992.94 1261.13 / 1261.13 Output Total 710 / 875 380 / 380 Balance 2760.37 / 2772.10 1273.54 / 1117.94 881.13 / 881.13 Medical Nutrition Assessment Dietitian: Malnutrition Criteria Met Start: 08/19/21 11:20 Freq: Status: Active Protocol: Document 08/19/21 11:20 AG (Rec: 08/19/21 11:20 AG [id number]) Nutrition Malnutrition Evidence of Malnutrition Exists Yes Evidenced By Suboptimal Energy Intake ( Severe),Weight Loss (Severe), Physical Changes (Severe) Clinical Problem Chronic Disease or Condition Related Malnutrition Etiology severe, chronic malnutrition r /t inadequate energy intake w/ decreased energy intake w/ advanced age Signs/Symptoms as evidenced by unintentional wt loss of 36.2#/24% wt loss x 1 year, estimated PO intake meeting <75% of estimated energy needs >3 months Status Active Problem Recommendation Dietitian Recommendations/Changes regular diet- will monitor renal function and adjust diet as indicated; however at this time it does not appear that PO intake is influencing renal function. Continue ensure w/ medpass as pt tolerates. Lab / Micro Data Result Diagrams: 08/20/21 06:20 08/20/21 06:20 Labs: Laboratory Results - last 24 hr 08/19/21 04:10: Diff Path Review Reviewed 08/19/21 14:35: Sodium 144, Potassium 4.7, Chloride 115 H, Carbon Dioxide 18.0 L , Anion Gap 11, BUN 63 H, Creatinine 1.99 H, Estim Creat Clear Calc 16.84, Est GFR (MDRD) Af Amer 31 L, Est GFR (MDRD) Non-Af 25 L, BUN/Creatinine Ratio 31.7 H , Glucose 131 H, Calcium 7.7 L 08/20/21 06:20: WBC 11.4 H, RBC 2.67 L, Hgb 7.7 L, Hct 25.0 L, MCV 93.6, MCH 28.8, MCHC 30.8 L, RDW Std Deviation 50.2 H, RDW Coeff of Ivon 14.7 H, Plt Count 365, MPV 9.8, Immature Gran % (Auto) 0.400, Neut % (Auto) 89.8 H, Lymph % (Auto) 2.9 L, [place] % (Auto) 6.8, Eos % (Auto) 0.0, Baso % (Auto) 0.1, Absolute Neuts (auto) 10.3 H, Absolute Lymphs (auto) 0.33 L, Nucleated RBC % 0, Differential Comment SCANNED 08/20/21 06:20: Sodium 148 H, Potassium 4.4, Chloride 120 H, Carbon Dioxide 18.0 L, Anion Gap 10, BUN 60 H, Creatinine 1.49 H, Estim Creat Clear Calc 23.84, Est GFR (MDRD) Af Amer 43 L, Est GFR (MDRD) Non-Af 35 L, BUN/Creatinine Ratio 40.3 H , Glucose 111 H, Calcium 7.7 L Micro: Microbiology 08/19/21 04:10 Nasal Secretion SARS-CoV-2 Antigen (Rapid) - Final Physical Exam Narrative Const alert and no apparent distress, disoriented, confused HEENT moist oral mucous membranes Head and Scalp: normocephalic Eyes PERRL, EOMs intact bilaterally and conjunctivae normal Neck supple and no JVD Resp normal respiratory effort, no retractions and no use of accessory muscles Auscultation: crackles; Negative for rales, rhonchi or wheezes Cardio regular rate, regular rhythm, S1 normal heart sound and S2 normal heart sound Heart Sounds: murmur GI soft to palpation, non-tender and non-distended; Negative for hepatosplenomegaly Extremity no clubbing, cyanosis or edema Skin no rashes or lesions noted Neuro no focal motor deficits and no sensory deficits noted Psych Mood & Affect: flat affect Thought Process: confused Assessment & Plan Assessment/Plan (1) Acute renal failure: QUALIFIERS: Acute renal failure type: unspecified Qualified Code(s): N17.9 - Acute kidney failure, unspecified (2) Acute metabolic encephalopathy: PLAN: 1. Acute metabolic encephalopathy secondary to hypotension/JASON with possible CKD unknown stage/anemia ? Infection is a possibility leading to the septic shock cultures are pending she does have bilateral patchy infiltrates ? Continue with Levophed, wean down as able ? Continue with IV fluids ? Baseline creatinine is around 1 currently she is 1.5, will continue to monitor ? Continue with broad-spectrum antibiotics ? Unknown etiology of the anemia, she does not appear to have dark BMs could be chronic disease if she does have CKD, will continue to monitor 2. CAD status post stent/HTN/HLD ? She has had significant contrast load recently which could also explain her kidney disease ? Continue with her aspirin and Plavix when she is alert enough to take it, as risk currently rectal ? Continue with her Lipitor when able to take p.o. ? Hold metoprolol secondary to hypotension 3. Anxiety/depression ? Stable ? Can continue with citalopram as able to take p.o. DVT: Heparin Charges/Coding Visit Charges Inpatient E&M: 58774 Subs Hosp L2
[2021-08-20] MEDS: Heparin Injection (Vial) 5,000 UNIT/ML VIAL 5000 UNIT SC ×2 (11:04→21:02)
[2021-08-20] MEDS: Clopidogrel Bisulfate 75 MG Tablet PO (11:04)
[2021-08-20] MEDS: Aspirin 300 MG Suppository RC (11:04)
[2021-08-21] VITALS (27 sets, daily range): BP systolic 116–158; BP diastolic 56–105; PULSE 65–107; RESP 12–48; TEMP 36.3–37.5; O2SAT 90–100
[2021-08-21] MEDS: Haloperidol Lactate 5 MG/ML Vial IV ×3 (03:18→15:00)
[2021-08-21] MEDS: 0.9% Saline Lock 10 ML Syringe IV ×5 (03:30→23:53)
[2021-08-21 03:42] LABS: Absolute Lymphocyte Count 0.16 X10^3/uL (0.83-4.51); Absolute Neutrophil Count 5.9 X10^3/uL (2.0-7.7); Hematocrit 22.7 % (37-47); Lymphocyte # 0.16 X10^3/ul (0.83-4.51); Lymphocyte % 2.4 % (19-41); Mean Corp Hgb Conc 30.8 g/dL (32-36); Mean Corpuscular Hgb 28.2 pg (27.0-32.0); Mean Corpuscular Volume 91.5 fL (81-99); Mean Platelet Vol. 9.6 fl (6.2-12.0); Monocyte# 0.51 X10^3/uL; Monocyte% 7.8 % (0-10); NRBC Flagged by Analyzer 0 % (0-5); Neutrophil # 5.88 X10^3/uL (2.7-7.7); Neutrophil % 89.3 % (47-70); POSITIVE DIFFERENTIAL YES; Platelet Count 278 K/mm3 (150-450); RBC Distribution Width CV 14.6 % (11.6-14.6); RBC Distribution Width SD 48.9 fl (35.1-43.9); Red Blood Count 2.48 M/mm3 (4.2-5.4); White Blood Count 6.6 K/mm3 (4.4-11.0)
[2021-08-21 03:44] LABS: Differential Indicated SCAN CRITERIA MET
[2021-08-21 03:59] LABS: ALB/GLOB Ratio 0.5 RATIO (0.9-2.4); AST(SGOT) 37 U/L (15-37); Alanine Aminotransfer ALT/SGPT 26 U/L (13-56); Albumin, Serum 1.8 g/dL (3.2-5.0); Alkaline Phosphatase 68 U/L (45-117); Anion Gap 7 (5-15); BUN 44 mg/dL (7-18); BUN/Creat Ratio 40.4 RATIO (10-20); Chloride 120 mmol/L (98-107); Creatinine, Serum 1.09 mg/dL (0.55-1.02); EST Glomerular Filtration Rate 51 mL/min (>60); Est Glom Filt Rate - Afr Amer 61 mL/min (>60); Estimated Creatinine Clearance 32.58 ml/min; Globulin 3.6 g/dL (2.2-4.2); Glucose 158 mg/dL (74-106); Potassium 3.4 mmol/L (3.5-5.1); Protein, Total 5.4 g/dL (6.4-8.2); Sodium Level 149 mmol/L (136-145)
[2021-08-21 04:21] LABS: Differential Comment SCANNED
[2021-08-21] MEDS: Hydrocortisone Sod Succinate 100 MG/2 ML Vial 50 MG IV (05:07)
[2021-08-21 06:47] LABS: Vancomycin, Random Level 8.2 ug/mL (0.0-15.0)
--- NOTE | 2021-08-21 07:53 | PN.CC_ITS ---
Assessment & Plan Assessment/Plan (1) Hypotension: (2) Acute renal failure: QUALIFIERS: Acute renal failure type: unspecified Qualified Code(s): N17.9 - Acute kidney failure, unspecified (3) Acute metabolic encephalopathy: (4) Idiopathic pulmonary fibrosis: PLAN: RECOMMENDATIONS: 1. Discontinue antibiotics if culture negative at 48 hours 2. Transition IV fluids to D5W given hypernatremia and hyperchloremia 3. Delirium protocol 4. Wean oxygen as tolerated 5. Await results of swallow study 6. Okay to leave the intensive care unit from my perspective 7. Hemodynamically stable on minimal nasal cannula oxygen. Will sign off from a critical care perspective IMPRESSIONS: 1. Metabolic encephalopathy secondary to hypotension/shock Patient's metabolic encephalopathy appears to be improving. Patient did have significant hypotension and acute kidney injury on presentation. We will continue supportive measures. Patient reportedly does not have dementia at baseline. Patient is on some medications that are renally excreted and may have accumulated leading to presentation. Patient's alertness is improved today, but still confused. Patient also reportedly has been choking recently, so aspiration pneumonia or UTI could lead to septic shock. Cultures are currently pending. Patient is on empiric antibiotics. Patient has received stress dose steroids, but initial leukocytosis may be secondary to endogenous response. Cortisol level will not be helpful at this time given patient is already received Solu-Cortef. Discontinue steroids once patient is off pressors. 2. Acute kidney injury/hypernatremia/hyperchloremia Unclear etiology. Improving. Patient does have a history of UTIs in the past. Patient has received significant contrast related to heart condition recently. Contrast-induced nephropathy would also be a concern. This does appear to be responding to supportive care. We will transition IV fluids given the development of hypernatremia and hyperchloremia Myeer catheter will be placed to monitor urine output closely. 3. Reported IPF/CHF/osteoarthritis/advanced age/cachexia/delirium Complicates care, management, recovery and prognosis. Given baseline IPF, subclinical aspiration pneumonia could be present. Hold on the majority of her medications as patient can have significant delayed clearance secondary to renal function. Would reinitiate pain medications once patient starts to complain of pain. Delirium protocol. Subjective Subjective Patient did well from a hemodynamic standpoint overnight. No pressors have been required. Patient remains confused and has had agitation requiring Haldol overnight. Patient is reportedly scheduled for a swallow study today. Objective Data Objective Data Vital Signs: Vital Signs Temp Pulse Resp BP Pulse Ox 37.1 C 85 22 H 147/104 H 95 08/21/21 04:00 08/21/21 07:00 08/21/21 07:00 08/21/21 07:00 08/21/21 07:00 Oxygen Flow Rate (L/min) 2 Oxygen Delivery Method Nasal Cannula Weight: 56.7 kg Body Mass Index (BMI) 19.5 Intake & Output: Intake and Output for Last 24 Hours 08/19/21 08/20/21 08/21/21 23:59 23:59 23:59 Intake Total 2661.19 / 2679.99 2405.53 / 2405.53 1000 / 1000 Output Total 710 / 710 735 / 810 475 / 475 Balance 1951.19 / 1969.99 1670.53 / 1595.53 525 / 525 Medical Nutrition Assessment Dietitian: Malnutrition Criteria Met Start: 08/19/21 11:20 Freq: Status: Active Protocol: Document 08/19/21 11:20 AG (Rec: 08/19/21 11:20 [id number]) Nutrition Malnutrition Evidence of Malnutrition Exists Yes Evidenced By Suboptimal Energy Intake ( Severe),Weight Loss (Severe), Physical Changes (Severe) Clinical Problem Chronic Disease or Condition Related Malnutrition Etiology severe, chronic malnutrition r /t inadequate energy intake w/ decreased energy intake w/ advanced age Signs/Symptoms as evidenced by unintentional wt loss of 36.2#/24% wt loss x 1 year, estimated PO intake meeting <75% of estimated energy needs >3 months Status Active Problem Recommendation Dietitian Recommendations/Changes regular diet- will monitor renal function and adjust diet as indicated; however at this time it does not appear that PO intake is influencing renal function. Continue ensure w/ medpass as pt tolerates. Lab / Micro Data Result Diagrams: 08/21/21 03:30 08/21/21 03:30 Labs: Laboratory Results - last 24 hr 08/20/21 06:20: Differential Comment SCANNED 08/21/21 03:30: WBC 6.6, RBC 2.48 L, Hgb 7.0 L, Hct 22.7 L, MCV 91.5, MCH 28.2, MCHC 30.8 L, RDW Std Deviation 48.9 H, RDW Coeff of Ivon 14.6, Plt Count 278, MPV 9.6, Immature Gran % (Auto) 0.500, Neut % (Auto) 89.3 H, Lymph % (Auto) 2.4 L, [place] % (Auto) 7.8, Eos % (Auto) 0.0, Baso % (Auto) 0.0, Absolute Neuts (auto) 5.9, Absolute Lymphs (auto) 0.16 L, Nucleated RBC % 0, Differential Comment SCANNED 08/21/21 03:30: Sodium 149 H, Potassium 3.4 L, Chloride 120 H, Carbon Dioxide 22.0, Anion Gap 7, BUN 44 H, Creatinine 1.09 H, Estim Creat Clear Calc 32.58, Est GFR (MDRD) Af Amer 61, Est GFR (MDRD) Non-Af 51 L, BUN/Creatinine Ratio 40.4 H, Glucose 158 H, Calcium 8.0 L, Total Bilirubin 0.50, AST 37, ALT 26, Alkaline Phosphatase 68, Total Protein 5.4 L, Albumin 1.8 L, Globulin 3.6, Albumin/Globulin Ratio 0.5 L 08/21/21 06:18: Random Vancomycin 8.2 Micro: Microbiology 08/19/21 04:10 Nasal Secretion SARS-CoV-2 Antigen (Rapid) - Final Physical Exam Const alert and no apparent distress General Appearance: cooperative, comfortable and well kempt Orientation / Consciousness: awake and oriented to person; Negative for oriented to place or oriented to time Exam Limitations: no limitations Nutritional Appearance: cachectic HEENT normocephalic and head/scalp atraumatic HEENT Narrative: Temporal wasting noted. Eyes PERRL, EOMs intact bilaterally and conjunctivae normal Chest inspection of chest normal Chest: symmetrical chest wall rise; Negative for crepitus Resp Resp Narrative: On 2L of oxygen by nasal canula Auscultation: rales and diminished lung sounds; Negative for rhonchi or wheezes Percussion: percussion normal Cardio regular rate, regular rhythm, S1 normal heart sound and S2 normal heart sound Heart Sounds: murmur systolic III/ apex GI normal to inspection, nondistended, normoactive bowel sounds, soft to palpation, non-tender and non-distended Extremity normal to inspection, full ROM and no clubbing, cyanosis or edema Skin no rashes or lesions noted Neuro oriented x3, CN's II-XII intact bilaterally and moves all extremities Sensorium / Orientation: awake and alert Charges/Coding Visit Charges Inpatient E&M: 80051 Subs Hosp L3
--- NOTE | 2021-08-21 09:20 | PHA.PHARE_ITS ---
Consult Pharmacy has been consulted to manage selected antiobiotic: Vancomycin Type of Consult: Follow-up Prior Doses of Antibiotics Received/Current Regimen: not currently on a scheduled dose of vanc Labs: Sodium 149 mmol/L (136-145) H 08/21/21 03:30 Potassium 3.4 mmol/L (3.5-5.1) L 08/21/21 03:30 Chloride 120 mmol/L (98-107) H 08/21/21 03:30 Carbon Dioxide 22.0 mmol/L (21.0-32.0) 08/21/21 03:30 Anion Gap 7 (5-15) 08/21/21 03:30 BUN 44 mg/dL (7-18) H 08/21/21 03:30 Creatinine 1.09 mg/dL (0.55-1.02) H 08/21/21 03:30 Est GFR (MDRD) Af Amer 61 mL/min (>60) 08/21/21 03:30 Est GFR (MDRD) Non-Af 51 mL/min (>60) L 08/21/21 03:30 BUN/Creatinine Ratio 40.4 RATIO (10-20) H 08/21/21 03:30 Glucose 158 mg/dL (74-106) H 08/21/21 03:30 Random Vancomycin 8.2 ug/mL (0.0-15.0) 08/21/21 06:18 Microbiology: Microbiology 08/19/21 04:10 Nasal Secretion SARS-CoV-2 Antigen (Rapid) - Final Weight used for dosin.7 kg Estimated Creatinine Clearance: 33 ml/min Goal Trough: 15-20 mcg/mL Pharmacy Plan for Drug Dosing: The vanc random level drawn at 06:18 today (approx 48 hrs after the dose of 1250mg received on 08/19/21) came back as 8.2. Since the patient's renal function has improved (Scr now 1.09 and CrCl 33), will start the patient on a scheduled dose of 750mg IV q24h per [facility] dosing protocol. Will check a trough level before the 3rd dose. Pharmacy Service will continue to monitor and adjust dosing as required. Follow-Up Labs: Trough Vancomycin Labs to be done on [date and time ordered]: 08/23/21 08:30
[2021-08-21] MEDS: Aspirin 300 MG Suppository RC (10:53)
[2021-08-21] MEDS: Clopidogrel Bisulfate 75 MG Tablet PO (10:53)
--- NOTE | 2021-08-21 10:57 | PCM.PN.HOSP ---
Subjective Subjective Remains confused and had Haldol overnight secondary to agitation and she is off of pressor support Objective Data Objective Data Vital Signs: Vital Signs Temp Pulse Resp BP Pulse Ox 99.5 F H 89 35 H 145/78 H 96 08/21/21 09:00 08/21/21 09:00 08/21/21 09:00 08/21/21 09:00 08/21/21 09:00 Oxygen Flow Rate (L/min) 2 Oxygen Delivery Method Nasal Cannula Weight: 125 lb 0.034 oz Body Mass Index (BMI) 19.5 Intake & Output: Intake and Output for Last 24 Hours 08/20/21 08/21/21 08/22/21 03:59 03:59 03:59 Intake Total 1983.54 / 1992.94 2337.38 / 2337.38 1265 / 1265 Output Total 710 / 875 910 / 1010 300 / 300 Balance 1273.54 / 1117.94 1427.38 / 1327.38 965 / 965 Medical Nutrition Assessment Dietitian: Malnutrition Criteria Met Start: 08/19/21 11:20 Freq: Status: Active Protocol: Document 08/19/21 11:20 AG (Rec: 08/19/21 11:20 AG [id number]) Nutrition Malnutrition Evidence of Malnutrition Exists Yes Evidenced By Suboptimal Energy Intake ( Severe),Weight Loss (Severe), Physical Changes (Severe) Clinical Problem Chronic Disease or Condition Related Malnutrition Etiology severe, chronic malnutrition r /t inadequate energy intake w/ decreased energy intake w/ advanced age Signs/Symptoms as evidenced by unintentional wt loss of 36.2#/24% wt loss x 1 year, estimated PO intake meeting <75% of estimated energy needs >3 months Status Active Problem Recommendation Dietitian Recommendations/Changes regular diet- will monitor renal function and adjust diet as indicated; however at this time it does not appear that PO intake is influencing renal function. Continue ensure w/ medpass as pt tolerates. Lab / Micro Data Result Diagrams: 08/21/21 03:30 08/21/21 03:30 Labs: Laboratory Results - last 24 hr 08/21/21 03:30: WBC 6.6, RBC 2.48 L, Hgb 7.0 L, Hct 22.7 L, MCV 91.5, MCH 28.2, MCHC 30.8 L, RDW Std Deviation 48.9 H, RDW Coeff of Ivon 14.6, Plt Count 278, MPV 9.6, Immature Gran % (Auto) 0.500, Neut % (Auto) 89.3 H, Lymph % (Auto) 2.4 L, [place] % (Auto) 7.8, Eos % (Auto) 0.0, Baso % (Auto) 0.0, Absolute Neuts (auto) 5.9, Absolute Lymphs (auto) 0.16 L, Nucleated RBC % 0, Differential Comment SCANNED 08/21/21 03:30: Sodium 149 H, Potassium 3.4 L, Chloride 120 H, Carbon Dioxide 22.0, Anion Gap 7, BUN 44 H, Creatinine 1.09 H, Estim Creat Clear Calc 32.58, Est GFR (MDRD) Af Amer 61, Est GFR (MDRD) Non-Af 51 L, BUN/Creatinine Ratio 40.4 H, Glucose 158 H, Calcium 8.0 L, Total Bilirubin 0.50, AST 37, ALT 26, Alkaline Phosphatase 68, Total Protein 5.4 L, Albumin 1.8 L, Globulin 3.6, Albumin/Globulin Ratio 0.5 L 08/21/21 06:18: Random Vancomycin 8.2 Micro: Microbiology 08/18/21 18:20 Blood Culture (Wb) - Anticubital Left Blood Culture - Preliminary No growth in 48 hours. 08/18/21 20:35 Blood Culture (Wb) - Anticubital Left Blood Culture - Preliminary No growth in 48 hours. 08/19/21 04:10 Nasal Secretion SARS-CoV-2 Antigen (Rapid) - Final Physical Exam Narrative Const alert and no apparent distress, disoriented, confused HEENT moist oral mucous membranes Head and Scalp: normocephalic Eyes PERRL, EOMs intact bilaterally and conjunctivae normal Neck supple and no JVD Resp normal respiratory effort, no retractions and no use of accessory muscles Auscultation: crackles; Negative for rales, rhonchi or wheezes Cardio regular rate, regular rhythm, S1 normal heart sound and S2 normal heart sound Heart Sounds: murmur GI soft to palpation, non-tender and non-distended; Negative for hepatosplenomegaly Extremity no clubbing, cyanosis or edema Skin no rashes or lesions noted Neuro no focal motor deficits and no sensory deficits noted Psych Mood & Affect: flat affect Thought Process: confused Assessment & Plan Assessment/Plan (1) Acute renal failure: QUALIFIERS: Acute renal failure type: unspecified Qualified Code(s): N17.9 - Acute kidney failure, unspecified (2) Acute metabolic encephalopathy: PLAN: 1. Acute metabolic encephalopathy secondary to hypotension/JASON with possible CKD unknown stage/anemia ? Infection is a possibility leading to the septic shock cultures are pending she does have bilateral patchy infiltrates ? Levophed has been discontinued for over 24 hours ? Continue with IV fluids ? Creatinine has returned to baseline ? We will discontinue antibiotics today ? Unknown etiology of the anemia, she does not appear to have dark BMs could be chronic disease if she does have CKD, will continue to monitor ? We will obtain iron studies 2. CAD status post stent/HTN/HLD ? She has had significant contrast load recently which could also explain her kidney disease ? Continue with her aspirin and Plavix when she is alert enough to take it, as risk currently rectal ? Continue with her Lipitor when able to take p.o. ? Hold metoprolol secondary to hypotension 3. Anxiety/depression ? Stable ? Can continue with citalopram as able to take p.o. DVT: Heparin Charges/Coding Visit Charges Inpatient E&M: 28726 Subs Hosp L2
[2021-08-21] MEDS: Heparin Injection (Vial) 5,000 UNIT/ML VIAL 5000 UNIT SC ×2 (11:02→22:08)
[2021-08-21] MEDS: Potassium Chloride IVPB 10 MEQ 100 MEQ IV BOLUS ×4 (11:35→15:26)
--- NOTE | 2021-08-21 12:34 | SP.MBSS_ITS ---
Modified Barium Swallow - Patient Information Study Date: 08/21/21 Study Time: 09:30 Direct Billable Minutes: 180 Total Minutes procedure & reportin Diagnosis: Dysphagia Referring Physician: Randy Mace Reason for Referral: Modified Barium Swallow Study recommended to objectively assess swallow function under fluoroscopy d/t suspected oropharyngeal/pharyngoesophageal dysphagia. MBS necessary to further elucidate diet texture/liquid consistency/compensatory st rategy recommendations and improve specificity of dysphagia interventions selected for maximal patient benefit and outcome. Medical History: Pt is an 85 y/o F with a significant history of congestive heart failure with preserved ejection fraction; pulmonary fibrosis; and pulmonary hypertension who before this presentation had a non-STEMI and was brought to our hospital on 08/09/2021. Attempt was made to place stents in patient's coronary vessels at our hospital. However that was unsuccessful. Patient was transferred to outside hospital where a stent could be placed. Patient presented to [facility] ED on 08/18/21 with altered mental status - less responsive, staring, BP in the 80s, RR of 6. Patient was taking morphine and oxycodone at home, received Narcan in the ED w/ improved RR of 20. Past medical history is significant for Atherosclerotic heart disease of hughes coronary artery without angina pectoris, Depression, History of left heart catheterization (LHC) (08/10/21). 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 2- Empiric 56 Setswana Vigil dilation. 3- Mild residual food in stomach. 4- Otherwise unremarkable EGD. Recommendations: 1- Follow-up on biopsy specimens. 2- Anti-reflux measures. 3- Add vitamin B12 1000 mcg daily and Iferex 150 mg daily to current medical regimen. 4- Return to our office in 3 weeks for follow-up. 5- Repeat CBC a few days prior to next OV. 6- Recommend colonoscopy once blood count a bit higher if patient/family agreeable. 01/13/21 GASTRIC/DUODENAL BIOPSY FINDINGS: 1- RANDOM DUODENAL BIOPSIES: Histologically unremarkable duodenal mucosa. No evidence of celiac sprue or parasites. 2- GASTRIC BIOPSIES: Erosive reactive gastropathy. Immunoperoxidase stain for Helicobacter pylori organisms is negative. 03/26/21 ABDOMINAL MRI: 1- Cholelithlasis. 2- There is a T2 hyperintense LEFT hepatic lobe lesion most compatible with a cyst although not fully characterized by noncontrast exam. 3- Trace LEFT pleural effusion with suspected chronic changes at the LEFT lung base. 4- LARGE HIATAL HERNIA Current Diet Ordered: NPO Dentition: Upper Dentures, Lower Dentures Mental Status: Impaired - encephalopathy, high anxiety Respiratory Status: Oxygenating on 3L/M nasal cannula - Penetration-Aspiration Scale Penetration-Aspiration Scale: OBJECTIVE ASSESSMENT OF SWALLOW FUNCTION (QUANTITATIVE ? PER TRIAL): PENETRATION / ASPIRATION SCALE ([place]): 1 = does not enter airway 2 = enters airway/above vocal folds/ejected 3 = enters airway/above vocal folds/not ejected 4 = enters airway/contacts vocal folds/ejected 5 = enters airway/contacts vocal folds/not ejected 6 = enters airway/below vocal folds/ejected 7 = enters airway/below vocal folds/not ejected despite effort 8 = enters airway/below vocal folds/no effort VIDEOFLOROSCOPIC SCALE SCORE ([place]): Grade I = aspiration of material that has penetrated into the laryngeal vestibule, intact cough reflex Grade II = aspiration < 10 % of the bolus, intact cough reflex Grade III = aspiration of < 10 % of the bolus, reduced cough reflex or aspiration of > 10 % of the bolus, intact cough reflex Grade IV = aspiration of > 10 % of the bolus, reduced cough reflex - Penetration-Aspiration Scale Score Thin Liquid 5mL via straw Result: 1= does not enter airway Thin Liquid via single sip from straw Result: 8= enters airway/below vocal folds/no effort Comment: Grade III = aspiration of LESS THAN 10% of the bolus, reduced cough response SILENT ASPIRATION Thin Liquid via sequential sips from straw Result: 8= enters airway/below vocal folds/no effort - trace penetration w/ 1st of 2 swallows, penetration/aspiration w/ 2nd of 2, post prandial penetration to the vocal folds when swallowing retained oral residue Comment: Grade III = aspiration of LESS THAN 10% of the bolus, reduced cough response SILENT ASPIRATION [place] Thick Liquid via teaspoon Result: 1= does not enter airway [place] Thick Liquid via small single sip from cup Result: 2= enter airway/above vocal folds/ejected [place] Thick Liquid via single sip from straw Result: 2= enter airway/above vocal folds/ejected Pudding via 1/2 tsp Result: 1= does not enter airway Pudding via full tsp Result: 3= enters airways/above vocal folds/not ejected Cookie Result: 1= does not enter airway Comment: little to no pharyngoesophageal clearance of solid texture cookie - majority of bolus retained w/in oropharynx (base of tongue, valleculae) Honey Thick Liquid via teaspoon Result: 1= does not enter airway [place] Thick Liquid via sequential sips from straw Result: 8= enters airway/below vocal folds/no effort Comment: Grade III = aspiration of LESS THAN 10% of the bolus, reduced cough response SILENT ASPIRATION trace undercoating of vocal folds w/out response or ejection [place] Thick Liquid via teaspoon Trial 2 Result: 1= does not enter airway Thin Liquid via single sip from straw Trial 2 Result: 3= enters airways/above vocal folds/not ejected Thin Liquid via small single sip from cup Result: 1= does not enter airway - Oral Phase Labial Seal: Escape beyond interlabial space; no extension beyond lam border Tongue Control During Bolus Hold: Escape to lateral buccal cavity/floor of mouth Bolus Preparation/Mastication: Disorganized chewing/mashing with solid pieces of bolus unchewed Bolus Transport/Lingual Motion: Slowed tongue motion Oral Residue: Majority of bolus remaining - Pharyngeal Phase Initiation of Pharyngeal Swallow: Bolus head at posterior laryngeal surgace of epiglottis Soft Palate Elevation: No bolus between soft palate and pharyngeal wall Laryngeal Elevation: Partial superior movement thyroid cart/partial apprx aryt- epig petiole Anterior Hyoid Excursion: Partial anterior movement Epiglottic Movement: Partial inversion Laryngeal Vestibule Closure at Height of Swallow: Incomplete; narrow column of air/contrast in laryngeal vestibule Pharyngeal Stripping Wave: Present - diminished Pharyngoesophageal Segment Opening: Parital distension and partial duration; parital obstruction of flow Tongue Base Retraction: Narrow column of contrast between tongue base & post. pharyngeal wall Pharyngeal Residue: Majority of contrast within or on pharyngeal structures - Esophageal Phase Esophageal Clearance: Esophageal retention w/ retrograde flow below pharyngoesophageal seg. - Diagnosis/Impression Diagnosis: moderate oropharyngeal dysphagia (R13.12) Impression: Swallow function is characterized by: * mastication inefficiency w/ significantly prolonged and inefficient solid texture bolus prep * poor oral clearance secondary to reduced intraoral strength * premature pharyngeal bolus entry w/ pre-prandial spillage of thin liquid into the laryngeal vestibule * penetration/SILENT ASPIRATION of thin liquids w/ no outward response to aspiration and when cued to cough, cough response was extremely weak w/ insufficient pressure to expel penetration/laryngotracheal aspiration * post prandial penetration to the vocal folds when swallowing retained thin liquid oral residue * improved bolus location upon swallow onset w/ increased liquid bolus viscosity and reduced liquid bolus volume * unable to maintain sufficient airway closure across multiple swallows resulting in laryngeal vestibule penetration/aspiration w/ sequential swallows * patient demonstrated difficulty controlling bolus volume and rate of intake * incomplete epiglottic inversion w/ little to no pharyngoesophageal clearance of solid texture cookie - majority of bolus retained w/in oropharynx (base of tongue, valleculae), required honey thick liquid wash via tsp to facilitate partial clearance * diminished pharyngeal contraction w/ residue retention along the posterior pharyngeal wall * increased risk for penetration/aspiration of pharyngeal residue and potential for aspiration of contrast retained w/in the esophagus Anatomical Abnormalities: C5-6 retention w/ retrograde flow - complicated by kyphosis LARGE hiatal hernia Diet Recommended: * Pureed Texture (IDDSI: 4) * Mildly Thick Liquid (IDDSI: 2) Compensatory Strategies Recommended: * Small bites * Small sips * Slow rate of intake * All bitee/sips presented via SMALL teaspoon * Sit upright w/ hip flexion at 90 degrees during PO intake (meals and meds) * Remain seated upright for at least 30 minutes after PO intake (GERD precautions - large hiatal hernia) * Meds crushed w/ purees Repeat MBS Recommended: Yes * Would strongly discourage advancement past nectar thickened liquids without completion of a repeat modified barium swallow study due to the extent of aspirate identified that was SILENT in nature. * Recommend a repeat modified barium swallow study within 2-4 weeks (if clinically appropriate) to further assess the presence and extent of silent and overt aspiration prior to advancement to thin liquids. Additional Speech Therapy Services Recommended: Yes This patient requires intensive skilled speech-language intervention targeting: * continued diet texture management * training and implementation of recommended compensatory strategies and GERD precautions * training and implementation of recommended oropharyngeal strengthening exercises to facilitate improved lingual control/strength, laryngeal vestibule closure/pressure, pharyngeal motility, epiglottic inversion, PES distention/duration * training and Patient education regarding implementation of the FFWP * patient and caregiver training targeting preparation of modified texture diet and liquid consistency if unable to advance to baseline diet prior to discharge. Education: Images were reviewed w/ the patient and her daughter following MBS conclusion. Extended time spent providing education re: anatomy/physiology of swallow function and of deficits identified. Findings additionally discussed w/ patient's son-in-law via telephone. Education was well received. Additional instruction/education required prior to discharge home (see above). Debbie RN verbally notified of findings and recommendation for diet and supervision needs. Nursing communication entered to reinforce same. - Status Active ST Patient: Active - Contact Information [facility] Speech Therapy:: Sia Molina M.A., CCC-POULTRY VACCINATOR [address] [place] [address] [phone] [email or web address]
[2021-08-21 12:49] LABS: Ferritin 82 ng/mL (8-252); Iron 15 ug/dL (50-170); Iron Binding Capacity,Total 202 ug/dL (250-450); PERCENT IRON SATURATION 7.4 % (15.0-55.0)
[2021-08-21] MEDS: QUEtiapine 25 MG Tablet PO ×2 (13:04→22:08)
--- NOTE | 2021-08-21 16:05 | CASEMGMT ---
Call from Naomi at [facility] and she states they are not able to accept pt at this time as they do not feel she is stable for d/c. She states they will re-eval on tuesday. Grace HAIDER CM
[2021-08-21] MEDS: Morphine 2 MG/ML Syringe IV ×2 (16:56→22:08)
[2021-08-21] MEDS: MELATONIN 10 MG TABLET PO (22:08)
--- NOTE | 2021-08-21 22:20 | RAD_ITS ---
STUDY: X-RAY CHEST REASON FOR EXAM: Female, 85 years old. sob DECREASING SPO2, SOB TECHNIQUE: Single AP portable view of the chest. The images are under penetrated. COMPARISON: August 18, 2021 FINDINGS: 1. Interval worsening of consolidation in both lungs which is moderate in the upper lobes and severe in the lower lobes 2. Small bilateral pleural effusions reidentified although slightly increased on the left from the previous study 3. Stable right IJ catheter 4. No pneumothorax is seen 5. Normal heart size 6. Small to moderate size hiatal hernia noted 7. Stable osseous structures. There is no demonstrated abnormality of the visualized soft tissue structures of the upper abdomen. RAD/Chest 1 View (Portable) IMPRESSION: Interval worsening of consolidation in both lungs which is moderate in the upper lobes and severe in the lower lobes Electronically Signed: Gabriel Heard MD at 23:36 EST , Service support ,
[2021-08-21 22:51] LABS: Allen Test Positive; Base Excess -4 mmol/L (-2 to +2); Bicarbonate 20.4 mmol/L (22-26); Blood Gas Specimen Type ART; FI02 80; O2 Delivery Device BiPAP; PO2 225 mmHG (75-100); RR 12; SITE L Radial; SO2 100 % (95-99); Total Carbon Dioxide 21 mmol/L; pCO2 32.6 mmHg (35-45); pH 7.41 (7.35-7.45)
[2021-08-22] VITALS (17 sets, daily range): BP systolic 85–153; BP diastolic 64–99; PULSE 91–126; RESP 12–46; TEMP 36.2–36.8; O2SAT 88–99
--- NOTE | 2021-08-22 00:18 | PCS.PANDOC ---
PANDEMIC DOCUMENTATION INITIATED: Date: 03/30/2021 Time: 190
[2021-08-22 01:26] LABS: Hematocrit 27.6 % (37-47); Hemoglobin 8.8 g/dL (12.0-15.0)
[2021-08-22] MEDS: 0.9% Saline Lock 10 ML Syringe IV ×8 (02:10→13:58)
[2021-08-22] MEDS: Haloperidol Lactate 5 MG/ML Vial IV ×2 (02:10→10:10)
[2021-08-22] MEDS: Morphine 2 MG/ML Syringe IV ×4 (02:52→11:58)
[2021-08-22 06:47] LABS: Absolute Lymphocyte Count 0.25 X10^3/uL (0.83-4.51); Absolute Neutrophil Count 7.8 X10^3/uL (2.0-7.7); Basophil# 0.02 X10^3/uL; Basophil% 0.2 % (0-1); Hematocrit 28.3 % (37-47); Hemoglobin 9.1 g/dL (12.0-15.0); Lymphocyte # 0.25 X10^3/ul (0.83-4.51); Lymphocyte % 2.7 % (19-41); Mean Corp Hgb Conc 32.2 g/dL (32-36); Mean Corpuscular Hgb 29.1 pg (27.0-32.0); Mean Corpuscular Volume 90.4 fL (81-99); Mean Platelet Vol. 9.8 fl (6.2-12.0); Monocyte% 12.9 % (0-10); NRBC Flagged by Analyzer 0 % (0-5); Neutrophil # 7.79 X10^3/uL (2.7-7.7); Neutrophil % 83.6 % (47-70); POSITIVE DIFFERENTIAL YES; Platelet Count 242 K/mm3 (150-450); RBC Distribution Width CV 14.8 % (11.6-14.6); RBC Distribution Width SD 48.2 fl (35.1-43.9); Red Blood Count 3.13 M/mm3 (4.2-5.4); White Blood Count 9.3 K/mm3 (4.4-11.0)
[2021-08-22 07:06] LABS: Differential Indicated SCAN CRITERIA MET
[2021-08-22 07:18] LABS: Anion Gap 6 (5-15); BUN 35 mg/dL (7-18); BUN/Creat Ratio 42.3 RATIO (10-20); Calcium,Total 8.2 mg/dL (8.5-10.1); Chloride 118 mmol/L (98-107); Creatinine, Serum 0.83 mg/dL (0.55-1.02); EST Glomerular Filtration Rate 70 mL/min (>60); Est Glom Filt Rate - Afr Amer 84 mL/min (>60); Estimated Creatinine Clearance 42.79 ml/min; Glucose 143 mg/dL (74-106); Potassium 4.1 mmol/L (3.5-5.1); Sodium Level 145 mmol/L (136-145)
[2021-08-22 07:41] LABS: Anisocytosis 2+
[2021-08-22] MEDS: Furosemide 40 MG/4 ML Vial IV (08:31)
[2021-08-22] MEDS: Heparin Injection (Vial) 5,000 UNIT/ML VIAL 5000 UNIT SC (08:48)
--- NOTE | 2021-08-22 10:11 | PN.HOSP_ITS ---
Subjective Subjective Some respiratory distress likely component of psych given her dementia. She is on BiPAP with respirations in the 30s to 40s FiO2 is 45% and she is satting in the mid to high 90s. She is given a dose of Lasix this morning this could be result of some volume overload from a blood transfusion yesterday of 1 unit sin ce her hemoglobin was seven Objective Data Objective Data Vital Signs: Vital Signs Temp Pulse Resp BP Pulse Ox 97.6 F L 110 H 44 H 138/93 H 95 08/22/21 08:20 08/22/21 08:25 08/22/21 08:25 08/22/21 08:20 08/22/21 08:25 Oxygen Flow Rate (L/min) 15 Oxygen Delivery Method Bi-pap Weight: 121 lb 11.123 oz Body Mass Index (BMI) 19.5 Intake & Output: Intake and Output for Last 24 Hours 08/21/21 08/22/21 08/23/21 03:59 03:59 03:59 Intake Total 2337.38 / 2337.38 3245 / 3245 552 / 552 Output Total 910 / 1010 1300 / 1300 150 / 150 Balance 1427.38 / 1327.38 1945 / 1945 402 / 402 Medical Nutrition Assessment Dietitian: Malnutrition Criteria Met Start: 08/19/21 11:20 Freq: Status: Active Protocol: Document 08/19/21 11:20 AG (Rec: 08/19/21 11:20 [id number]) Nutrition Malnutrition Evidence of Malnutrition Exists Yes Evidenced By Suboptimal Energy Intake ( Severe),Weight Loss (Severe), Physical Changes (Severe) Clinical Problem Chronic Disease or Condition Related Malnutrition Etiology severe, chronic malnutrition r /t inadequate energy intake w/ decreased energy intake w/ advanced age Signs/Symptoms as evidenced by unintentional wt loss of 36.2#/24% wt loss x 1 year, estimated PO intake meeting <75% of estimated energy needs >3 months Status Active Problem Recommendation Dietitian Recommendations/Changes regular diet- will monitor renal function and adjust diet as indicated; however at this time it does not appear that PO intake is influencing renal function. Continue ensure w/ medpass as pt tolerates. Lab / Micro Data Result Diagrams: 08/22/21 06:25 08/22/21 06:25 Labs: Laboratory Results - last 24 hr 08/21/21 03:30: Iron 15 L, TIBC 202 L, Iron Saturation 7.4 L, Ferritin 82 08/21/21 17:50: Blood Type A POSITIVE, Antibody Screen NEGATIVE, Crossmatch See Detail 08/22/21 01:20: Hgb 8.8 L, Hct 27.6 L 08/22/21 06:25: WBC 9.3, RBC 3.13 L, Hgb 9.1 L, Hct 28.3 L, MCV 90.4, MCH 29.1, MCHC 32.2, RDW Std Deviation 48.2 H, RDW Coeff of Ivon 14.8 H, Plt Count 242, MPV 9.8, Immature Gran % (Auto) 0.600, Neut % (Auto) 83.6 H, Lymph % (Auto) 2.7 L, [place] % (Auto) 12.9 H, Eos % (Auto) 0.0, Baso % (Auto) 0.2, Absolute Neuts (auto) 7.8 H, Absolute Lymphs (auto) 0.25 L, Nucleated RBC % 0, Anisocytosis 2+ 08/22/21 06:25: Sodium 145, Potassium 4.1, Chloride 118 H, Carbon Dioxide 21.0, Anion Gap 6, BUN 35 H, Creatinine 0.83, Estim Creat Clear Calc 42.79, Est GFR (MDRD) Af Amer 84, Est GFR (MDRD) Non-Af 70, BUN/Creatinine Ratio 42.3 H, Glucose 143 H, Calcium 8.2 L Micro: Microbiology 08/18/21 18:20 Blood Culture (Wb) - Anticubital Left Blood Culture - Preliminary No growth in 48 hours. 08/18/21 20:35 Blood Culture (Wb) - Anticubital Left Blood Culture - Preliminary No growth in 48 hours. 08/19/21 04:10 Nasal Secretion SARS-CoV-2 Antigen (Rapid) - Final ABG Data ABG results: ABG 08/21/21 22:43 Specimen Type ART Sample Site L Radial pH 7.41 Bicarbonate Actual 20.4 L Total CO2 21 Base Excess -4 L O2 Saturation 100 H O2 % 80 ABG pCO2 32.6 L ABG pO2 225 H Roland Test Positive Respiration Rate 12 O2 Delivery Device BiPAP Clinical Comments BiPAP 07/20 Radiography Diagnostic Testing: Radiology Impression Chest X-Ray 08/21/21 22:20 IMPRESSION: Interval worsening of consolidation in both lungs which is moderate in the upper lobes and severe in the lower lobes Electronically Signed: Gabriel Heard MD at 23:36 EST , Service support , Physical Exam Narrative Const alert and mild to moderate respiratory distress, disoriented, confused HEENT moist oral mucous membranes Head and Scalp: normocephalic Eyes PERRL, EOMs intact bilaterally and conjunctivae normal Neck supple and no JVD Resp normal respiratory effort, no retractions and no use of accessory muscles Auscultation: Minimal crackles in the bases; Negative for rales, rhonchi or wheezes Cardio regular rate, regular rhythm, S1 normal heart sound and S2 normal heart sound Heart Sounds: murmur GI soft to palpation, non-tender and non-distended; Negative for hepatosplenomegaly Extremity no clubbing, cyanosis or edema Skin no rashes or lesions noted Neuro no focal motor deficits and no sensory deficits noted Psych Mood & Affect: flat affect Thought Process: confused Assessment & Plan Assessment/Plan (1) Acute renal failure: QUALIFIERS: Acute renal failure type: unspecified Qualified Code(s): N17.9 - Acute kidney failure, unspecified (2) Acute metabolic encephalopathy: PLAN: 1. Acute metabolic encephalopathy secondary to hypotension/JASON with possible CKD unknown stage/iron deficiency anemia ? Blood urine cultures are negative, COVID was negative, antibiotics have been discontinued ? Continue with IV fluids as she is not eating very well to continue with d extrose ? Creatinine has returned to baseline ?Iron studies come back with iron deficiency, she was transfused 1 unit however now with her respiratory distress and anxiety, she was given a dose of Lasix. She is also been complaining of some pain therefore she was also given a dose of morphine which may help with the air hunger as well 2. CAD status post stent/HTN/HLD ? She has had significant contrast load recently which could also explain her kidney disease ? Continue with her aspirin and Plavix when she is alert enough to take it ? Continue with her Lipitor when able to take p.o. ? Hold metoprolol secondary to hypotension 3. Anxiety/depression ? Stable ? Can continue with citalopram as able to take p.o. DVT: Heparin Charges/Coding Visit Charges Inpatient E&M: 28051 Subs Hosp L2
[2021-08-22] MEDS: QUEtiapine 25 MG Tablet PO (10:16)
[2021-08-22] MEDS: LORazepam 2 MG/ML Syringe 0.5 MG IV (12:40)
--- NOTE | 2021-08-22 12:56 | PCM.PN.INT ---
Assessment & Plan Assessment/Plan (1) Hypotension: (2) Acute renal failure: QUALIFIERS: Acute renal failure type: unspecified Qualified Code(s): N17.9 - Acute kidney failure, unspecified (3) Acute metabolic encephalopathy: (4) Idiopathic pulmonary fibrosis: PLAN: RECOMMENDATIONS: 1. Improve rate control 2. Agree with diuretic therapy 3. Delirium protocol 4. Wean oxygen as tolerated 5. Obtain chest x-ray IMPRESSIONS: 1. Metabolic encephalopathy secondary to hypotension/shock Patient's metabolic encephalopathy appears to be worse today, probably secondary to problem #4. Patient did have significant hypotension and acute kidney injury on presentation. Patient reportedly does not have dementia at baseline. Patient is on some medications that are renally excreted and may have accumulated leading to presentation. Current decrease in mental status likely secondary to a new problem but blood gas overnight shows adequate oxygenation and ventilation on current BiPAP settings. 2. Acute kidney injury/hypernatremia/hyperchloremia Resolved. Patient does have a history of UTIs in the past. Patient has received significant contrast related to heart condition recently. Contrast-induced nephropathy would also be a concern. This does appear to be responding to supportive care. IV fluids will be held secondary to problem #4 3. Reported IPF/osteoarthritis/advanced age/cachexia/delirium Complicates care, management, recovery and prognosis. Given baseline IPF, subclinical aspiration pneumonia could be present. Hold on the majority of her medications as patient can have significant delayed clearance secondary to renal function. Would reinitiate pain medications once patient starts to complain of pain. Delirium protocol. 4. Acute hypoxic respiratory failure secondary to probable acute on chronic diastolic CHF Chest x-ray shows significant increase in interstitium compared to previous. Patient also has higher fluid balance over the course of the hospitalization. This is exacerbated by tachycardia and patient would benefit from improved rate control. Subjective Subjective Asked to see patient again secondary to respiratory decompensation overnight. Patient not able to provide much additional history. Nursing reports patient has little p.o. intake during the day today. Patient did receive unit of blood overnight prior to decompensation. Patient has been given a dose of Lasix this morning with subjective improvement in anasarca. Objective Data Objective Data Vital Signs: Vital Signs Temp Pulse Resp BP Pulse Ox 36.6 C 121 H 34 H 128/89 H 93 08/22/21 12:20 08/22/21 12:20 08/22/21 12:20 08/22/21 12:20 08/22/21 12:20 Oxygen Flow Rate (L/min) 15 Oxygen Delivery Method Bi-pap Weight: 55.2 kg Body Mass Index (BMI) 19.5 Intake & Output: Intake and Output for Last 24 Hours 08/20/21 08/21/21 08/22/21 23:59 23:59 23:59 Intake Total 2405.53 / 2405.53 3245 / 3245 582 / 582 Output Total 735 / 810 1475 / 1475 1350 / 1350 Balance 1670.53 / 1595.53 1770 / 1770 -768 / -768 Medical Nutrition Assessment Dietitian: Malnutrition Criteria Met Start: 08/19/21 11:20 Freq: Status: Active Protocol: Document 08/19/21 11:20 AG (Rec: 08/19/21 11:20 [id number]) Nutrition Malnutrition Evidence of Malnutrition Exists Yes Evidenced By Suboptimal Energy Intake ( Severe),Weight Loss (Severe), Physical Changes (Severe) Clinical Problem Chronic Disease or Condition Related Malnutrition Etiology severe, chronic malnutrition r /t inadequate energy intake w/ decreased energy intake w/ advanced age Signs/Symptoms as evidenced by unintentional wt loss of 36.2#/24% wt loss x 1 year, estimated PO intake meeting <75% of estimated energy needs >3 months Status Active Problem Recommendation Dietitian Recommendations/Changes regular diet- will monitor renal function and adjust diet as indicated; however at this time it does not appear that PO intake is influencing renal function. Continue ensure w/ medpass as pt tolerates. Lab / Micro Data Result Diagrams: 08/22/21 06:25 08/22/21 06:25 Labs: Laboratory Results - last 24 hr 08/21/21 17:50: Blood Type A POSITIVE, Antibody Screen NEGATIVE, Crossmatch See Detail 08/22/21 01:20: Hgb 8.8 L, Hct 27.6 L 08/22/21 06:25: WBC 9.3, RBC 3.13 L, Hgb 9.1 L, Hct 28.3 L, MCV 90.4, MCH 29.1, MCHC 32.2, RDW Std Deviation 48.2 H, RDW Coeff of Ivon 14.8 H, Plt Count 242, MPV 9.8, Immature Gran % (Auto) 0.600, Neut % (Auto) 83.6 H, Lymph % (Auto) 2.7 L, [place] % (Auto) 12.9 H, Eos % (Auto) 0.0, Baso % (Auto) 0.2, Absolute Neuts (auto) 7.8 H, Absolute Lymphs (auto) 0.25 L, Nucleated RBC % 0, Anisocytosis 2+ 08/22/21 06:25: Sodium 145, Potassium 4.1, Chloride 118 H, Carbon Dioxide 21.0, Anion Gap 6, BUN 35 H, Creatinine 0.83, Estim Creat Clear Calc 42.79, Est GFR (MDRD) Af Amer 84, Est GFR (MDRD) Non-Af 70, BUN/Creatinine Ratio 42.3 H, Glucose 143 H, Calcium 8.2 L Micro: Microbiology 08/18/21 18:20 Blood Culture (Wb) - Anticubital Left Blood Culture - Preliminary No growth in 48 hours. 08/18/21 20:35 Blood Culture (Wb) - Anticubital Left Blood Culture - Preliminary No growth in 48 hours. 08/19/21 04:10 Nasal Secretion SARS-CoV-2 Antigen (Rapid) - Final ABG Data ABG results: ABG 08/21/21 22:43 Specimen Type ART Sample Site L Radial pH 7.41 Bicarbonate Actual 20.4 L Total CO2 21 Base Excess -4 L O2 Saturation 100 H O2 % 80 ABG pCO2 32.6 L ABG pO2 225 H Roland Test Positive Respiration Rate 12 O2 Delivery Device BiPAP Clinical Comments BiPAP 12/6 Radiography Diagnostic Testing: Radiology Impression Chest X-Ray 08/21/21 22:20 IMPRESSION: Interval worsening of consolidation in both lungs which is moderate in the upper lobes and severe in the lower lobes Electronically Signed: Gabriel Heard MD at 23:36 EST , Service support , Physical Exam Const Constitutional Narrative: Good BiPAP synchrony General Appearance: well kempt and lethargic Exam Limitations: no limitations Nutritional Appearance: cachectic HEENT normocephalic and head/scalp atraumatic HEENT Narrative: Temporal wasting noted. Eyes PERRL, EOMs intact bilaterally and conjunctivae normal Chest inspection of chest normal Chest: symmetrical chest wall rise; Negative for crepitus Resp Auscultation: rales and diminished lung sounds; Negative for rhonchi or wheezes Percussion: percussion normal Cardio regular rate, regular rhythm, S1 normal heart sound and S2 normal heart sound Heart Sounds: murmur systolic III/ apex GI normal to inspection, nondistended, normoactive bowel sounds, soft to palpation, non-tender and non-distended Extremity normal to inspection, full ROM and no clubbing, cyanosis or edema Skin no rashes or lesions noted Neuro oriented x3, CN's II-XII intact bilaterally and moves all extremities Sensorium / Orientation: awake and alert Charges/Coding Visit Charges Inpatient E&M: 78455 Subs Hosp L3
--- NOTE | 2021-08-22 13:45 | RAD_ITS ---
STUDY: X-RAY CHEST REASON FOR EXAM: Female, 85 years old. Progressive hypoxia TECHNIQUE: Single AP portable view of the chest. COMPARISON: August 21, 2021 chest x-ray FINDINGS: There is a right internal jugular venous line the tip is in the superior vena cava. There is a pattern of diffuse areas of interstitial thickening and lower lobe consolidation. The patient appears kyphotic. There is mild cardiac enlargement. Normal mediastinum and prema. Normal visualized pulmonary arteries. Normal visualized aortic arch and descending thoracic aorta. There are diffuse degenerative changes of the visualized thoracic spine. Normal visualized ribs, clavicles, and shoulders. There is no demonstrated abnormality of the visualized soft tissue structures of the upper abdomen. RAD/Chest 1 View (Portable) IMPRESSION: Interstitial infiltrates lower lobe consolidation consider edema possible pneumonia superimposed on chronic lung disease. Kyphosis degenerative change. Right-sided central line tip in satisfactory position no visualized pneumothorax. Electronically Signed: Elizabeth Lopez MD at 16:06 EST Tel , Service support ,
[2021-08-22] MEDS: Metoprolol Tartrate 5 MG/5 ML Vial 2.5 MG IV (13:58)
--- NOTE | 2021-08-22 14:35 | NURSING ---
At approximately [address] Gallagher that patient was requesting to speak to physician, physician stepped into room and let daughter know that he would be back after assessing a critical patient. left room and patient daughter chased physician down [place] and tried to enter steps to follow him, family returned to desk requesting physician stating I'm going to kick his ass. patient daughter requesting new physician. daughter returned to room after going outside for a few minutes. once returning to floor charge nurse informed pt that he was the only doctor available to speak to her and give an update and if not would have to wait until tomorrow. Pt daughter agreed to speak to Dr. Gallagher and this RN and charge nurse participated in conversation regarding pt care. Security and vice squad police officer present outside of room as resource if needed. Pt daughter and physician came to understanding and had a good conversation regarding care and treatment plan. pt daughter was apologetic and thankful for care. Olga Lidia updated by this nurse after physician left regarding care and treatment. No further questions or concerns voiced.
--- NOTE | 2021-08-22 16:14 | PCM.PN.BLA ---
Progress Note On reevaluation she still appeared to be fairly tachypneic she did have about 1200 cc of urine however given her respiratory status I went ahead and reconsulted pulmonology. I did restart her blood pressure medications and in discussion with the daughter, she does have significant back pain so it unclear whether or not this is part of her tachypnea. Her medications have been held secondary to her altered mental status initially on admission. However she does take about 15 mg of morphine twice a day, therefore we will increase her morphine to 4 mg IV every 3 to try to help get this pain under better control. Will not resume her Neurontin at this time. Her blood pressures are little bit soft secondary to the Lopressor she was given earlier. Per the daughter her mother has not been eating very well for the last 2 months with just lack of appetite and nothing tastes good, we did have an extensive discussion that this decline could necessitate either palliative care or hospice, she is thinking about this. In the meantime the patient remains a DNR CCA and DNI.
--- NOTE | 2021-08-22 16:30 | NURSING ---
Called to room by HEALTH DATA ANALYST. Daughter at bedside stating I think she is gone. No pulse noted, no BP. PEA on heart monitor. Patient DNRCC-A No intubation.
--- NOTE | 2021-08-22 16:53 | PCM.DEATH ---
Preliminary Cause of Preliminary Cause of Preliminary Cause of : Acute hypoxic respiratory failure secondary to acute diastolic CHF exacerbation Date of Admission: 08/18/21 Principle Diagnosis Problem List: Active and Suspected Problems (Updated 08/19/21 @ 02:[address] Mike Bhandari MD) Acute metabolic encephalopathy (Acute) Acute renal failure (Acute) Leukocytosis (Acute) Hypotension (Acute) Hospital Course Mrs. Newman is a 89-year-old female who had initially presented to this hospital over 2 weeks ago with's of breath and dyspnea on exertion. She did have a history of idiopathic pulmonary fibrosis and was chronically on 3 L nasal cannula. At that time she had a cardiac catheterization which demonstrated need for intervention however it was too complicated to be done here so she was transferred to an outside hospital where she had stents placed. She presented to this hospital during this admission for altered mental status. Initially it was thought that she possibly was septic, she was requiring Levophed, however all cultures were negative. She had been started on antibiotics but these were ultimately discontinued once the cultures came back negative. Her Levophed was weaned over 1 to 2days and she was doing well otherwise. She was still confused and disoriented however she was transferred out of the ICU down to the progressive care unit. She was also found to have anemia. This was ultimately iron deficiency however her hemoglobin was down to 7 and given her recent cardiac intervention she was transfused 1 unit of packed red blood cells on 08/21/2021. It was felt that this admission was ultimately caused by an JASON from the heart cath both here on her previous admission and at the other institution and she is on gabapentin as well as morphine at home for chronic pain in her back. It was felt that these Catherine likely increased in the setting of her JASON therefore all of her home meds at this time have been discontinued. After the transfusion yesterday she appeared to have increasing oxygen requirements and she was placed on BiPAP it does not appear that she was given Lasix overnight. This morning she was noted to be having more respiratory distress and tachypneic so 40 mg of IV Lasix was given this morning with a good response however she remained tachypneic throughout the day her home medications were restarted and she was started on more aggressive pain medication and she was given a dose of Lopressor to try to get her heart rate under control as she had not been on any metoprolol while she been here which she takes at home. After the metoprolol her blood pressure had dropped, she was continued on the BiPAP, however she remained tachypneic. She seemed to have a little bit of improvement with Ativan for anxiety however she continued to be tachypneic and after discussion with the family they reiterated that she is a DNR/DNI. She on 08/22/2021 at 1630. Visit Charges Inpatient E&M: 04722 Disch Hosp
--- NOTE | 2021-08-22 17:31 | CM.ED ---
SW Note SW met with patient's daughter. Family wants [facility] in [place]. SW provided emotional support to patient's daughter until patient's son in law arrived. collective bargaining specialist updated regarding the home. SW remains available if needs arise. Plan: Emotional Support provided Danielle CARSON
== END 2021-08-22 16:30 | DRG 682 ==
LOC: ED 20:58 → ICU 23:13 → PCU 08-21 13:48
PROVIDERS: Internal Medicine Critical Care Medicine; Admitting Provider Hospitalist; Emergency Provider Emergency Medicine; PCP Family Medicine; Visit Provider Family Medicine
DX: N17.9 Acute kidney failure, unspecified (principal); I50.33 Acute on chronic diastolic (congestive) heart failure; J96.01 Acute respiratory failure with hypoxia; J69.0 Pneumonitis due to inhalation of food and vomit; I21.4 Non-ST elevation (NSTEMI) myocardial infarction; G93.41 Metabolic encephalopathy; E43 Unspecified severe protein-calorie malnutrition; I13.0 Hypertensive heart and chronic kidney disease with heart failure and stage 1 through stage 4 chronic kidney disease, or unspecified chronic kidney disease; E87.0 Hyperosmolality and hypernatremia; Z68.1 Body mass index [BMI] 19.9 or less, adult; J84.112 Idiopathic pulmonary fibrosis; N18.4 Chronic kidney disease, stage 4 (severe); J84.10 Pulmonary fibrosis, unspecified; E78.5 Hyperlipidemia, unspecified; E87.8 Other disorders of electrolyte and fluid balance, not elsewhere classified; D50.9 Iron deficiency anemia, unspecified; I25.10 Atherosclerotic heart disease of native coronary artery without angina pectoris; I25.2 Old myocardial infarction; F41.9 Anxiety disorder, unspecified; F32.A Depression, unspecified; Z66 Do not resuscitate; Z96.653 Presence of artificial knee joint, bilateral; Z20.822 Contact with and (suspected) exposure to COVID-19; Z95.5 Presence of coronary angioplasty implant and graft
CPT/HCPCS: 36415; 36600; 70450; 71045; 74230; 80048; 80053; 80076; 80202; 81001; 82728; 82803; 83540; 83550; 83605; 83690; 84484; 85014; 85018; 85025; 86850; 86900; 86901; 86920; 86922; 87040; 87426; 92526; 92610; 92611; 93005; 94002; 94003; 97163; 97167; 97530; 97535; 97802; 99285; J7030; J7040; J7050; P9016; A4216; C1751; J1940; J2310; J7799